=== PATIENT | male | born 1995 | race Caucasian/White ===

== ENCOUNTER 2017-04-08 14:11 | Emergency (ER) | payer BC ==
[~2017-04-08] VITALS: Ht 5787.1 cm; Wt 125.0 kg
[~2017-04-08 14:11] MED LIST: AMAN100C18 PO; ARIP10TA15 PO; ARIP20TA10; CLON0.1T20; CLON0.3T PO; LITH600C; LITH600C PO
[2017-04-08 15:01] LABS: CLARITY,URINE CLOUDY (Clear); COLOR,URINE YELLOW (Yellow); GLUCOSE, URINE NEGATIVE (Neg); KETONES,URINE NEGATIVE (Neg); LEUKOCYTE ESTERASE ,URINE TRACE (Neg); NITRITES, URINE NEGATIVE (Neg); OCCULT BLOOD,URINE NEGATIVE (Neg); PROTEIN,URINE 30 mg/dl (Neg)
[2017-04-08 15:07] LABS: BASOPHILS % (AUTO) 0.3 % (0-1); EOSINOPHILS # (AUTO) 0.2 X10'3 (0-0.9); EOSINOPHILS % (AUTO) 2.2 % (0-6); HEMATOCRIT 49.1 % (42.0-52.0); HEMOGLOBIN 17.3 g/dl (14.0-17.9); LYMPHOCYTES # (AUTO) 1.7 X10'3 (1.1-4.8); LYMPHOCYTES % (AUTO) 20.3 % (21-51); MEAN CORPUSCULAR HEMOGLOBIN 31.3 PG (27.0-31.0); MEAN CORPUSCULAR HGB CONC 35.2 % (33.0-36.5); MEAN CORPUSCULAR VOLUME 88.9 FL (78-98); MEAN PLATELET VOLUME 7.8 FL (7.4-10.4); MONOCYTES # (AUTO) 0.5 X10'3 (0-0.9); MONOCYTES % (AUTO) 5.5 % (2-12); NEUTROPHILS % (AUTO) 71.7 % (42-75); PLATELET COUNT 278 X10'3 (140-440); RED BLOOD COUNT 5.52 X10'6 (4.70-6.10); RED CELL DISTRIBUTION WIDTH 12.6 % (11.5-14.5); WHITE BLOOD COUNT 8.4 X10'3 (4.5-11.0)
[2017-04-08 15:09] LABS: UA COLLECTION TYPE CLN CATCH MIDSTREAM
[2017-04-08 15:10] LABS: MUCUS STRANDS MANY /LPF (Neg); SQUAMOUS EPITHELIAL CELL,UR MODERATE /LPF (FEW); URINE AMPHETAMINE SCREEN POSITIVE (Neg); URINE BARBITUATE SCREEN NEGATIVE (Neg); URINE BENZODIAZEPINES SCREEN POSITIVE (Neg); URINE CANNABINOID SCREEN NEGATIVE (Neg); URINE COCAINE SCREEN NEGATIVE (Neg); URINE METHADONE SCREEN NEGATIVE (Neg); URINE OPIATE SCREEN NEGATIVE (Neg); URINE PHENCYCLIDINE SCREEN NEGATIVE (Neg)
[2017-04-08 15:11] LABS: TRANSITIONAL EPI CELLS,URINE FEW /HPF
[2017-04-08 15:12] LABS: BACTERIA,URINE 1+ /HPF (Neg); RBC,URINE 0-2 /HPF (0-2); WBC,URINE 20-30 /HPF (0-4)
[2017-04-08] MEDS ORDERED: azithromycin 250mg tablet PO ONE (15:20)
[2017-04-08] MEDS ORDERED: CefTRIAXone 250MG IM Kit w/LIDOcaine IM ONE (15:20)
[2017-04-08] MEDS ORDERED: LITH600C PO ×2 (15:21→19:51)
[2017-04-08] MEDS ORDERED: ALPR-624 PO (15:21)
[2017-04-08] MEDS ORDERED: AMPH30CA10 PO (15:21)
[2017-04-08] MEDS ORDERED: QUET-1 PO (15:21)
[2017-04-08] MEDS ORDERED: LIT300C PO (15:21)
[2017-04-08 15:31] LABS: ALANINE AMINOTRANSFERASE 85 U/L (12-78); ALBUMIN 4.3 G/DL (3.4-5.0); ALBUMIN/GLOBULIN RATIO 1.1 (1.1-1.5); ALKALINE PHOSPHATASE 81 IU/L (20-180); ANION GAP 9 (8-16); ASPARTATE AMINO TRANSFERASE 38 U/L (10-37); BILIRUBIN,TOTAL 1.3 MG/DL (0.1-1.0); BLOOD UREA NITROGEN 14 MG/DL (7-18); BUN/CREATININE RATIO 12.7 (5.4-32.0); CALCIUM 9.4 MG/DL (8.5-10.1); CHLORIDE 104 MMOL/L (99-107); ETHANOL < 0.010 GM/DL (0.0-0.010); GLUCOSE 91 MG/DL (70-104); POTASSIUM 3.7 MMOL/L (3.5-5.1); SODIUM 140 MMOL/L (135-145); TOTAL CARBON DIOXIDE 27.4 MMOL/L (24-32); TOTAL PROTEIN 8.1 G/DL (6.4-8.2); eGFR 86 ML/MIN
[2017-04-09] MEDS ORDERED: ALPRAZolam 0.5mg tablet PO PRN (06:55)
[2017-04-09] MEDS ORDERED: quetiapine 100mg tablet PO PRN (06:55)
[2017-04-09] MEDS ORDERED: lithium carbonate 300mg SR tablet (LithoBID) PO SCH ×2 (08:00→21:00)
[2017-04-10 06:59] VITALS: BP 117/53
== END 2017-04-10 07:01 ==
LOC: ER 14:11
DX: R45.851 Suicidal ideations (principal); F15.959 Other stimulant use, unspecified with stimulant-induced psychotic disorder, unspecified; N39.0 Urinary tract infection, site not specified; Z79.899 Other long term (current) drug therapy
CPT/HCPCS: 36415; 80053; 80178; 80305; 80320; 81001; 84443; 85025; 87491; 87591; 96372; 99285; J0696

== ENCOUNTER 2017-05-12 11:50 | Day surgery (SDC) | payer BC, MEDICAID ==
[2017-05-07 16:13] LABS: BASOPHILS % (AUTO) 0.3 % (0-1); EOSINOPHILS # (AUTO) 0.1 X10'3 (0-0.9); EOSINOPHILS % (AUTO) 1.8 % (0-6); LYMPHOCYTES # (AUTO) 2.2 X10'3 (1.1-4.8); LYMPHOCYTES % (AUTO) 31.4 % (21-51); MEAN CORPUSCULAR HEMOGLOBIN 31.2 PG (27.0-31.0); MEAN CORPUSCULAR HGB CONC 34.8 % (33.0-36.5); MEAN CORPUSCULAR VOLUME 89.6 FL (78-98); MEAN PLATELET VOLUME 8.1 FL (7.4-10.4); MONOCYTES # (AUTO) 0.4 X10'3 (0-0.9); MONOCYTES % (AUTO) 6.3 % (2-12); NEUTROPHILS # (AUTO) 4.3 X10'3 (1.8-7.7); NEUTROPHILS % (AUTO) 60.2 % (42-75); PRE OP HEMATOCRIT 48.3 % (42.0-52.0); PRE OP HEMOGLOBIN 16.8 g/dL (14.0-17.9); PRE OP PLATELET COUNT 273 X10'3 (140-440); RED BLOOD COUNT 5.39 X10'6 (4.70-6.10)
[2017-05-07 16:27] LABS: ALBUMIN 4.3 G/DL (3.4-5.0); ALBUMIN/GLOBULIN RATIO 1.1 (1.1-1.5); ALKALINE PHOSPHATASE 83 IU/L (20-180); BLOOD UREA NITROGEN 13 MG/DL (7-18); BUN/CREATININE RATIO 12.1 (5.4-32.0); CALCIUM 9.2 MG/DL (8.5-10.1); CHLORIDE 105 MMOL/L (99-107); CREATININE 1.07 MG/DL (0.60-1.10); PRE OP ANION GAP 10 (8-16); PRE OP AST 44 U/L (10-37); PRE OP BILIRUB, TOTAL 0.8 MG/DL (0.0-1.0); PRE OP GLUCOSE 79 MG/DL (70-104); PRE OP POTASSIUM 3.8 MMOL/L (3.4-5.1); PRE OP SODIUM 143 MMOL/L (135-145); TOTAL PROTEIN 8.2 G/DL (6.4-8.2); eGFR 89 ML/MIN
[2017-05-07 16:31] LABS: PRE OP ALT 107 U/L (30-65)
[2017-05-07 17:52] LABS: CLARITY,URINE CLEAR (Clear); COLOR,URINE YELLOW (Yellow); GLUCOSE, URINE NEGATIVE (Neg); KETONES,URINE NEGATIVE (Neg); LEUKOCYTE ESTERASE ,URINE NEGATIVE (Neg); NITRITES, URINE NEGATIVE (Neg); OCCULT BLOOD,URINE NEGATIVE (Neg); PROTEIN,URINE NEGATIVE (Neg)
[2017-05-07 17:53] LABS: UA COLLECTION TYPE CLN CATCH MIDSTREAM
[~2017-05-12] VITALS: Ht 172.7 cm; Wt 122.9 kg
[~2017-05-12 11:50] MED LIST changes: +AMPH30CA10 PO; -ARIP10TA15 PO; -ARIP20TA10; -CLON0.1T20; -CLON0.3T PO; +LIT300C PO; -LITH600C; +QUET-1 PO; +ceFAZolin inj. 3,000 MG in normal saline 100ml IV soln 100 ML IV ONE; +famotidine 20mg tablet PO ONE; +ringers solution, lacted 1,000 ML IV SCH
[2017-05-12 12:00] VITALS: BP 130/74
[2017-05-12] MEDS ORDERED: LIDOcaine 1% (10mg/ml) 2ml vial ONE (12:13)
[2017-05-12] MEDS ORDERED: ALPRAZolam 0.25mg tablet PO ONE (13:30)
[2017-05-12] MEDS ORDERED: ringers solution, lacted 1,000 ML IV SCH (14:13)
[2017-05-12] MEDS ORDERED: hydrALAZINE 20mg/ml inj. IV PRN (14:15)
[2017-05-12] MEDS ORDERED: ondansetron/PF 4mg/2ml inj IV PRN (14:15)
[2017-05-12] MEDS ORDERED: fentaNYL/PF 50MCG/1 ML 2ML syringe IV PRN ×2 (14:15)
[2017-05-12] MEDS ORDERED: labetalol 5mg/ml 20ml inj. IV PRN (14:15)
[2017-05-12] MEDS ORDERED: morphine 4 MG/ML inj SYRINge IV PRN ×2 (14:15)
[2017-05-12] MEDS ORDERED: BUPIVAcaine/PF 2.5 mg/ml (0.25%) 30ml vial ONE (15:31)
[2017-05-12] MEDS ORDERED: povidone-iodine 10% topical ointment 28.4gm TP ONE (15:31)
[2017-05-12] MEDS ORDERED: ceFAZolin 1000mg inj ONE (15:31)
[2017-05-12] MEDS ORDERED: neostigmine methylsulfate 1 MG/ML 10ml vial ONE (15:38)
[2017-05-12] MEDS ORDERED: sevoflurane 250ml liquid IH ONE (15:38)
[2017-05-12] MEDS ORDERED: glycopyrrolate 0.2mg/ml inj ONE (15:38)
[2017-05-12] MEDS ORDERED: dexamethasone sod phosphate 4mg/ml inj. ONE (15:38)
[2017-05-12] MEDS ORDERED: propofol inj 20 ML IV ONE (15:38)
[2017-05-12] MEDS ORDERED: ondansetron/PF 4mg/2ml inj ONE (15:38)
[2017-05-12] MEDS ORDERED: rocuronium 10mg/ml inj IV ONE (15:38)
[2017-05-12] MEDS ORDERED: fentaNYL/PF 50MCG/1 ML 2ML syringe ONE (15:40)
[2017-05-12] MEDS ORDERED: MIDAZolam 5mg/5ml vial ONE (15:40)
[2017-05-12] MEDS ORDERED: methylene blue (5mg/ml) 50mg/10ml ampul IV ONE (16:15)
[2017-05-12 16:50] VITALS: BP 131/53
[2017-05-12 17:00] VITALS: BP 131/47
[2017-05-12 17:10] VITALS: BP 118/46
[2017-05-12 17:20] VITALS: BP 107/31
[2017-05-12 17:30] VITALS: BP 112/75
== END 2017-05-12 17:50 | disposition home or self-care (01) ==
LOC: PAS 11:50
PROVIDERS: ATTEND Surgery
DX: L05.91 Pilonidal cyst without abscess (principal); F43.10 Post-traumatic stress disorder, unspecified; E66.9 Obesity, unspecified; Z79.899 Other long term (current) drug therapy; F98.8 Other specified behavioral and emotional disorders with onset usually occurring in childhood and adolescence; Z68.41 Body mass index [BMI] 40.0-44.9, adult
CPT/HCPCS: 11771; 36415; 80053; 81003; 85025; A6266; A6449; J0690; J1100; J2250; J2405; J2704; J2710; J3010; J3490; J7030; J7120; A7000

== ENCOUNTER 2017-05-14 10:13 | Outpatient (CLI) | payer BC, MEDICAID ==
[~2017-05-14 10:13] MED LIST changes: -ceFAZolin inj. 3,000 MG in normal saline 100ml IV soln 100 ML IV ONE; -famotidine 20mg tablet PO ONE; -ringers solution, lacted 1,000 ML IV SCH
[2017-05-14] MEDS ORDERED: LIDOcaine 2% 5ml jelly ONE (11:27)
[2017-05-14] MEDS ORDERED: ALPR-624 PO (11:45)
== END 2017-05-14 12:04 | disposition home or self-care (01) ==
LOC: WOUND CARE 10:13
PROVIDERS: ATTEND Surgery
DX: T81.89XA Other complications of procedures, not elsewhere classified, initial encounter (principal); L98.491 Non-pressure chronic ulcer of skin of other sites limited to breakdown of skin; E66.9 Obesity, unspecified; F15.959 Other stimulant use, unspecified with stimulant-induced psychotic disorder, unspecified; Z79.899 Other long term (current) drug therapy; Y83.8 Other surgical procedures as the cause of abnormal reaction of the patient, or of later complication, without mention of misadventure at the time of the procedure
CPT/HCPCS: 99215; A6266

== ENCOUNTER 2017-05-18 10:03 | Outpatient (CLI) | payer BC, MEDICAID ==
[~2017-05-18 10:03] MED LIST changes: +ALPR-624 PO
== END 2017-05-18 11:39 | disposition home or self-care (01) ==
LOC: WOUND CARE 10:03
PROVIDERS: ATTEND Surgery
DX: T81.89XD Other complications of procedures, not elsewhere classified, subsequent encounter (principal); L98.491 Non-pressure chronic ulcer of skin of other sites limited to breakdown of skin; E66.9 Obesity, unspecified; F15.959 Other stimulant use, unspecified with stimulant-induced psychotic disorder, unspecified; Z79.899 Other long term (current) drug therapy; Y83.8 Other surgical procedures as the cause of abnormal reaction of the patient, or of later complication, without mention of misadventure at the time of the procedure
CPT/HCPCS: 99211; A6266

== ENCOUNTER 2017-05-21 10:42 | Outpatient (CLI) | payer BC, MEDICAID | END 2017-05-21 11:47 | disposition home or self-care (01) | LOC: WOUND CARE 10:42 | PROVIDERS: ATTEND Surgery | DX: T81.89XD Other complications of procedures, not elsewhere classified, subsequent encounter (principal); L98.491 Non-pressure chronic ulcer of skin of other sites limited to breakdown of skin; E66.9 Obesity, unspecified; F15.959 Other stimulant use, unspecified with stimulant-induced psychotic disorder, unspecified; Z79.899 Other long term (current) drug therapy; Y83.8 Other surgical procedures as the cause of abnormal reaction of the patient, or of later complication, without mention of misadventure at the time of the procedure | CPT/HCPCS: 99214; A6266 ==

== ENCOUNTER 2017-05-25 10:25 | Day surgery (SDC) | payer BC, MEDICAID ==
[2017-05-25] MEDS ORDERED: LIDOcaine 2% 5ml jelly ONE ×2 (10:54)
== END 2017-05-25 11:35 | disposition home or self-care (01) ==
LOC: WOUND CARE 10:25
PROVIDERS: ATTEND Surgery
DX: T81.89XD Other complications of procedures, not elsewhere classified, subsequent encounter (principal); L98.491 Non-pressure chronic ulcer of skin of other sites limited to breakdown of skin; E66.9 Obesity, unspecified; F15.959 Other stimulant use, unspecified with stimulant-induced psychotic disorder, unspecified; Z79.899 Other long term (current) drug therapy; Y83.8 Other surgical procedures as the cause of abnormal reaction of the patient, or of later complication, without mention of misadventure at the time of the procedure
CPT/HCPCS: 97597; A6266

== ENCOUNTER 2017-05-28 10:42 | Outpatient (CLI) | payer BC, MEDICAID ==
[2017-05-28] MEDS ORDERED: LIDOcaine 2% 5ml jelly ONE (12:00)
== END 2017-05-28 12:47 | disposition home or self-care (01) ==
LOC: WOUND CARE 10:42
PROVIDERS: ATTEND Surgery
DX: T81.89XD Other complications of procedures, not elsewhere classified, subsequent encounter (principal); L98.491 Non-pressure chronic ulcer of skin of other sites limited to breakdown of skin; E66.9 Obesity, unspecified; F15.959 Other stimulant use, unspecified with stimulant-induced psychotic disorder, unspecified; Z79.899 Other long term (current) drug therapy; Y83.8 Other surgical procedures as the cause of abnormal reaction of the patient, or of later complication, without mention of misadventure at the time of the procedure
CPT/HCPCS: 99215; A6213; A6266

== ENCOUNTER 2017-06-01 11:10 | Day surgery (SDC) | payer BC, MEDICAID ==
[2017-06-01] MEDS ORDERED: LIDOcaine 2% 5ml jelly ONE (11:24)
== END 2017-06-01 11:47 | disposition home or self-care (01) ==
LOC: WOUND CARE 11:10
PROVIDERS: ATTEND Surgery
DX: T81.89XD Other complications of procedures, not elsewhere classified, subsequent encounter (principal); L98.491 Non-pressure chronic ulcer of skin of other sites limited to breakdown of skin; E66.9 Obesity, unspecified; F15.959 Other stimulant use, unspecified with stimulant-induced psychotic disorder, unspecified; Z79.899 Other long term (current) drug therapy; Y83.8 Other surgical procedures as the cause of abnormal reaction of the patient, or of later complication, without mention of misadventure at the time of the procedure
CPT/HCPCS: 11042; A6266; A4456

== ENCOUNTER 2017-06-08 09:08 | Day surgery (SDC) | payer BC, MEDICAID ==
[2017-06-08] MEDS ORDERED: LIDOcaine 2% 5ml jelly ONE (11:04)
== END 2017-06-08 12:01 | disposition home or self-care (01) ==
LOC: WOUND CARE 09:08
PROVIDERS: ATTEND Surgery
DX: T81.89XD Other complications of procedures, not elsewhere classified, subsequent encounter (principal); L98.492 Non-pressure chronic ulcer of skin of other sites with fat layer exposed; E66.9 Obesity, unspecified; L05.01 Pilonidal cyst with abscess; F15.959 Other stimulant use, unspecified with stimulant-induced psychotic disorder, unspecified; Z79.899 Other long term (current) drug therapy; Y83.8 Other surgical procedures as the cause of abnormal reaction of the patient, or of later complication, without mention of misadventure at the time of the procedure
CPT/HCPCS: 11042; A6021

== ENCOUNTER 2017-06-11 09:41 | Day surgery (SDC) | payer BC, MEDICAID ==
[2017-06-11] MEDS ORDERED: LIDOcaine 2% 5ml jelly ONE (09:42)
== END 2017-06-11 10:41 | disposition home or self-care (01) ==
LOC: WOUND CARE 09:41
PROVIDERS: ATTEND Surgery
DX: T81.89XD Other complications of procedures, not elsewhere classified, subsequent encounter (principal); L98.492 Non-pressure chronic ulcer of skin of other sites with fat layer exposed; E66.9 Obesity, unspecified; L05.01 Pilonidal cyst with abscess; F15.959 Other stimulant use, unspecified with stimulant-induced psychotic disorder, unspecified; Z79.899 Other long term (current) drug therapy; Y83.8 Other surgical procedures as the cause of abnormal reaction of the patient, or of later complication, without mention of misadventure at the time of the procedure
CPT/HCPCS: 97597; A6266

== ENCOUNTER 2017-06-15 09:25 | Day surgery (SDC) | payer BC, MEDICAID ==
[2017-06-15] MEDS ORDERED: LIDOcaine 2% 5ml jelly ONE (09:58)
== END 2017-06-15 10:21 | disposition home or self-care (01) ==
LOC: WOUND CARE 09:25
PROVIDERS: ATTEND Surgery
DX: T81.89XD Other complications of procedures, not elsewhere classified, subsequent encounter (principal); L98.492 Non-pressure chronic ulcer of skin of other sites with fat layer exposed; E66.9 Obesity, unspecified; L05.01 Pilonidal cyst with abscess; F15.959 Other stimulant use, unspecified with stimulant-induced psychotic disorder, unspecified; Z79.899 Other long term (current) drug therapy; Y83.8 Other surgical procedures as the cause of abnormal reaction of the patient, or of later complication, without mention of misadventure at the time of the procedure
CPT/HCPCS: 11042; A6021

== ENCOUNTER 2017-06-18 08:27 | Day surgery (SDC) | payer BC, MEDICAID ==
[2017-06-18] MEDS ORDERED: LIDOcaine 2% 5ml jelly ONE (09:38)
== END 2017-06-18 09:58 | disposition home or self-care (01) ==
LOC: WOUND CARE 08:27
PROVIDERS: ATTEND Surgery
DX: T81.89XD Other complications of procedures, not elsewhere classified, subsequent encounter (principal); L98.492 Non-pressure chronic ulcer of skin of other sites with fat layer exposed; E66.9 Obesity, unspecified; L05.01 Pilonidal cyst with abscess; F15.959 Other stimulant use, unspecified with stimulant-induced psychotic disorder, unspecified; Z79.899 Other long term (current) drug therapy; Y83.8 Other surgical procedures as the cause of abnormal reaction of the patient, or of later complication, without mention of misadventure at the time of the procedure
CPT/HCPCS: 11042; A6021

== ENCOUNTER 2017-06-25 08:20 | Day surgery (SDC) | payer BC, MEDICAID ==
[2017-06-25] MEDS ORDERED: LIDOcaine 2% 5ml jelly ONE (09:39)
== END 2017-06-25 10:08 | disposition home or self-care (01) ==
LOC: WOUND CARE 08:20
PROVIDERS: ATTEND Surgery
DX: T81.89XD Other complications of procedures, not elsewhere classified, subsequent encounter (principal); L98.492 Non-pressure chronic ulcer of skin of other sites with fat layer exposed; L05.01 Pilonidal cyst with abscess; E66.9 Obesity, unspecified; F15.959 Other stimulant use, unspecified with stimulant-induced psychotic disorder, unspecified; Z79.899 Other long term (current) drug therapy; Z68.41 Body mass index [BMI] 40.0-44.9, adult; Y83.8 Other surgical procedures as the cause of abnormal reaction of the patient, or of later complication, without mention of misadventure at the time of the procedure
CPT/HCPCS: 17250; A6021

== ENCOUNTER 2017-07-02 09:00 | Day surgery (SDC) | payer BC, MEDICAID ==
[2017-07-02] MEDS ORDERED: LIDOcaine 2% 5ml jelly ONE (09:40)
== END 2017-07-02 10:00 | disposition home or self-care (01) ==
LOC: WOUND CARE 09:00
PROVIDERS: ATTEND Surgery
DX: T81.89XD Other complications of procedures, not elsewhere classified, subsequent encounter (principal); L98.492 Non-pressure chronic ulcer of skin of other sites with fat layer exposed; E66.9 Obesity, unspecified; L05.01 Pilonidal cyst with abscess; F15.959 Other stimulant use, unspecified with stimulant-induced psychotic disorder, unspecified; Z79.899 Other long term (current) drug therapy; Y83.8 Other surgical procedures as the cause of abnormal reaction of the patient, or of later complication, without mention of misadventure at the time of the procedure
CPT/HCPCS: 17250; A6021

== ENCOUNTER 2017-07-09 10:20 | Day surgery (SDC) | payer BC, MEDICAID ==
[2017-07-09] MEDS ORDERED: LIDOcaine 2% 5ml jelly ONE (10:54)
== END 2017-07-09 11:25 | disposition home or self-care (01) ==
LOC: WOUND CARE 10:20
PROVIDERS: ATTEND Surgery
DX: T81.89XD Other complications of procedures, not elsewhere classified, subsequent encounter (principal); L98.492 Non-pressure chronic ulcer of skin of other sites with fat layer exposed; E66.9 Obesity, unspecified; L05.01 Pilonidal cyst with abscess; F15.959 Other stimulant use, unspecified with stimulant-induced psychotic disorder, unspecified; Z79.899 Other long term (current) drug therapy; Y83.8 Other surgical procedures as the cause of abnormal reaction of the patient, or of later complication, without mention of misadventure at the time of the procedure
CPT/HCPCS: 17250; A6021

== ENCOUNTER 2017-07-20 08:47 | Day surgery (SDC) | payer BC, MEDICAID ==
[2017-07-20] MEDS ORDERED: LIDOcaine 2% 5ml jelly ONE (09:38)
== END 2017-07-20 09:54 | disposition home or self-care (01) ==
LOC: WOUND CARE 08:47
PROVIDERS: ATTEND Surgery
DX: T81.89XD Other complications of procedures, not elsewhere classified, subsequent encounter (principal); L98.492 Non-pressure chronic ulcer of skin of other sites with fat layer exposed; E66.9 Obesity, unspecified; L05.01 Pilonidal cyst with abscess; F15.959 Other stimulant use, unspecified with stimulant-induced psychotic disorder, unspecified; Z79.899 Other long term (current) drug therapy; Y83.8 Other surgical procedures as the cause of abnormal reaction of the patient, or of later complication, without mention of misadventure at the time of the procedure
CPT/HCPCS: 17250; A6021

== ENCOUNTER 2017-07-27 08:25 | Day surgery (SDC) | payer BC, MEDICAID ==
[2017-07-27] MEDS ORDERED: LIDOcaine 2% 5ml jelly ONE (09:40)
== END 2017-07-27 10:13 | disposition home or self-care (01) ==
LOC: WOUND CARE 08:25
PROVIDERS: ATTEND Surgery
DX: T81.89XD Other complications of procedures, not elsewhere classified, subsequent encounter (principal); L98.492 Non-pressure chronic ulcer of skin of other sites with fat layer exposed; E66.9 Obesity, unspecified; L05.01 Pilonidal cyst with abscess; F15.959 Other stimulant use, unspecified with stimulant-induced psychotic disorder, unspecified; Z79.899 Other long term (current) drug therapy; Z68.41 Body mass index [BMI] 40.0-44.9, adult; Y83.8 Other surgical procedures as the cause of abnormal reaction of the patient, or of later complication, without mention of misadventure at the time of the procedure
CPT/HCPCS: 17250; A6021

== ENCOUNTER 2017-08-10 08:40 | Day surgery (SDC) | payer BC, MEDICAID ==
[2017-08-10] MEDS ORDERED: LIDOcaine 2% 5ml jelly ONE (09:31)
== END 2017-08-10 10:10 | disposition home or self-care (01) ==
LOC: WOUND CARE 08:40
PROVIDERS: ATTEND Surgery
DX: T81.89XD Other complications of procedures, not elsewhere classified, subsequent encounter (principal); L98.492 Non-pressure chronic ulcer of skin of other sites with fat layer exposed; E66.9 Obesity, unspecified; L05.01 Pilonidal cyst with abscess; F15.959 Other stimulant use, unspecified with stimulant-induced psychotic disorder, unspecified; Z79.899 Other long term (current) drug therapy; Z68.41 Body mass index [BMI] 40.0-44.9, adult; Y83.8 Other surgical procedures as the cause of abnormal reaction of the patient, or of later complication, without mention of misadventure at the time of the procedure
CPT/HCPCS: 17250; A6021

== ENCOUNTER 2017-08-24 08:20 | Day surgery (SDC) | payer BC, MEDICAID ==
[2017-08-24] MEDS ORDERED: LIDOcaine 2% 5ml jelly ONE (09:49)
== END 2017-08-24 10:20 | disposition home or self-care (01) ==
LOC: WOUND CARE 08:20
PROVIDERS: ATTEND Surgery
DX: T81.89XD Other complications of procedures, not elsewhere classified, subsequent encounter (principal); L98.492 Non-pressure chronic ulcer of skin of other sites with fat layer exposed; E66.9 Obesity, unspecified; L05.01 Pilonidal cyst with abscess; F15.959 Other stimulant use, unspecified with stimulant-induced psychotic disorder, unspecified; Z79.899 Other long term (current) drug therapy; Z68.41 Body mass index [BMI] 40.0-44.9, adult; Y83.8 Other surgical procedures as the cause of abnormal reaction of the patient, or of later complication, without mention of misadventure at the time of the procedure
CPT/HCPCS: 17250; A6021

== ENCOUNTER 2017-09-07 08:20 | Day surgery (SDC) | payer BC, MEDICAID ==
[2017-09-07] MEDS ORDERED: LIDOcaine 2% 5ml jelly ONE (09:48)
== END 2017-09-07 10:32 | disposition home or self-care (01) ==
LOC: WOUND CARE 08:20
PROVIDERS: ATTEND Surgery
DX: T81.89XD Other complications of procedures, not elsewhere classified, subsequent encounter (principal); L98.492 Non-pressure chronic ulcer of skin of other sites with fat layer exposed; E66.9 Obesity, unspecified; L05.01 Pilonidal cyst with abscess; F15.959 Other stimulant use, unspecified with stimulant-induced psychotic disorder, unspecified; Z79.899 Other long term (current) drug therapy; Z68.41 Body mass index [BMI] 40.0-44.9, adult; Y83.8 Other surgical procedures as the cause of abnormal reaction of the patient, or of later complication, without mention of misadventure at the time of the procedure
CPT/HCPCS: 17250; A6021

== ENCOUNTER 2017-09-21 08:40 | Day surgery (SDC) | payer BC, MEDICAID ==
[2017-09-21] MEDS ORDERED: LIDOcaine 2% 5ml jelly ONE (09:28)
[2017-09-21] MEDS ORDERED: PROP20TA6 PO (14:57)
== END 2017-09-21 10:47 | disposition home or self-care (01) ==
LOC: WOUND CARE 08:40
PROVIDERS: ATTEND Surgery
DX: T81.89XD Other complications of procedures, not elsewhere classified, subsequent encounter (principal); L98.492 Non-pressure chronic ulcer of skin of other sites with fat layer exposed; E66.9 Obesity, unspecified; L05.01 Pilonidal cyst with abscess; F15.959 Other stimulant use, unspecified with stimulant-induced psychotic disorder, unspecified; Z79.899 Other long term (current) drug therapy; Z68.41 Body mass index [BMI] 40.0-44.9, adult; Y83.8 Other surgical procedures as the cause of abnormal reaction of the patient, or of later complication, without mention of misadventure at the time of the procedure
CPT/HCPCS: 17250; A6021

== ENCOUNTER 2017-10-05 08:20 | Day surgery (SDC) | payer BC, MEDICAID ==
[~2017-10-05 08:20] MED LIST changes: +PROP20TA6 PO
[2017-10-05] MEDS ORDERED: LIDOcaine/PRILOcaine 5gm cream TP ONE (09:37)
== END 2017-10-05 10:29 | disposition home or self-care (01) ==
LOC: WOUND CARE 08:20
PROVIDERS: ATTEND Surgery
DX: T81.89XD Other complications of procedures, not elsewhere classified, subsequent encounter (principal); L98.492 Non-pressure chronic ulcer of skin of other sites with fat layer exposed
CPT/HCPCS: 17250; A6021

== ENCOUNTER 2017-10-19 08:15 | Day surgery (SDC) | payer BC, MEDICAID | END 2017-10-19 10:05 | disposition home or self-care (01) | LOC: WOUND CARE 08:15 | PROVIDERS: ATTEND Surgery | DX: T81.89XD Other complications of procedures, not elsewhere classified, subsequent encounter (principal); L98.492 Non-pressure chronic ulcer of skin of other sites with fat layer exposed; E66.9 Obesity, unspecified; L05.01 Pilonidal cyst with abscess; F15.959 Other stimulant use, unspecified with stimulant-induced psychotic disorder, unspecified; Z79.899 Other long term (current) drug therapy; Z68.41 Body mass index [BMI] 40.0-44.9, adult; Y83.8 Other surgical procedures as the cause of abnormal reaction of the patient, or of later complication, without mention of misadventure at the time of the procedure | CPT/HCPCS: 17250; A6021 ==

== ENCOUNTER 2017-11-02 08:25 | Day surgery (SDC) | payer BC, MEDICAID ==
[2017-11-02] MEDS ORDERED: LIDOcaine/PRILOcaine 5gm cream TP ONE (09:46)
== END 2017-11-02 10:46 | disposition home or self-care (01) ==
LOC: WOUND CARE 08:25
PROVIDERS: ATTEND Surgery
DX: T81.89XD Other complications of procedures, not elsewhere classified, subsequent encounter (principal); L98.492 Non-pressure chronic ulcer of skin of other sites with fat layer exposed; E66.9 Obesity, unspecified; L05.01 Pilonidal cyst with abscess; F15.959 Other stimulant use, unspecified with stimulant-induced psychotic disorder, unspecified; Z79.899 Other long term (current) drug therapy; Y83.8 Other surgical procedures as the cause of abnormal reaction of the patient, or of later complication, without mention of misadventure at the time of the procedure
CPT/HCPCS: 17250; A6021

== ENCOUNTER 2017-11-09 08:35 | Day surgery (SDC) | payer BC, MEDICAID ==
[2017-11-09] MEDS ORDERED: LIDOcaine/PRILOcaine 5gm cream TP ONE (09:57)
== END 2017-11-09 10:20 | disposition home or self-care (01) ==
LOC: WOUND CARE 08:35
PROVIDERS: ATTEND Surgery
DX: T81.89XD Other complications of procedures, not elsewhere classified, subsequent encounter (principal); L98.492 Non-pressure chronic ulcer of skin of other sites with fat layer exposed; E66.9 Obesity, unspecified; L05.01 Pilonidal cyst with abscess; F15.959 Other stimulant use, unspecified with stimulant-induced psychotic disorder, unspecified; Z79.899 Other long term (current) drug therapy; Y83.8 Other surgical procedures as the cause of abnormal reaction of the patient, or of later complication, without mention of misadventure at the time of the procedure
CPT/HCPCS: 17250; A6021

== ENCOUNTER 2017-11-16 08:25 | Day surgery (SDC) | payer BC, MEDICAID ==
[2017-11-16] MEDS ORDERED: LIDOcaine/PRILOcaine 5gm cream TP ONE (09:29)
== END 2017-11-16 10:40 | disposition home or self-care (01) ==
LOC: WOUND CARE 08:25
PROVIDERS: ATTEND Surgery
DX: T81.89XD Other complications of procedures, not elsewhere classified, subsequent encounter (principal); L98.492 Non-pressure chronic ulcer of skin of other sites with fat layer exposed; E66.9 Obesity, unspecified; L05.01 Pilonidal cyst with abscess; F15.959 Other stimulant use, unspecified with stimulant-induced psychotic disorder, unspecified; Z79.899 Other long term (current) drug therapy; Y83.8 Other surgical procedures as the cause of abnormal reaction of the patient, or of later complication, without mention of misadventure at the time of the procedure
CPT/HCPCS: 17250; A6021

== ENCOUNTER 2017-11-23 07:05 | Day surgery (SDC) | payer BC, MEDICAID ==
[2017-11-23] MEDS ORDERED: LIDOcaine/PRILOcaine 5gm cream TP ONE (09:49)
== END 2017-11-23 10:05 | disposition home or self-care (01) ==
LOC: WOUND CARE 07:05
PROVIDERS: ATTEND Surgery
DX: T81.89XD Other complications of procedures, not elsewhere classified, subsequent encounter (principal); L98.492 Non-pressure chronic ulcer of skin of other sites with fat layer exposed; E66.9 Obesity, unspecified; L05.01 Pilonidal cyst with abscess; F15.959 Other stimulant use, unspecified with stimulant-induced psychotic disorder, unspecified; Z79.899 Other long term (current) drug therapy; Y83.8 Other surgical procedures as the cause of abnormal reaction of the patient, or of later complication, without mention of misadventure at the time of the procedure
CPT/HCPCS: 17250; A6021

== ENCOUNTER 2017-11-30 08:03 | Day surgery (SDC) | payer BC, MEDICAID | END 2017-11-30 10:12 | disposition home or self-care (01) | LOC: WOUND CARE 08:03 | PROVIDERS: ATTEND Surgery | DX: T81.89XD Other complications of procedures, not elsewhere classified, subsequent encounter (principal); L98.492 Non-pressure chronic ulcer of skin of other sites with fat layer exposed; E66.9 Obesity, unspecified; L05.01 Pilonidal cyst with abscess; F15.959 Other stimulant use, unspecified with stimulant-induced psychotic disorder, unspecified; Z79.899 Other long term (current) drug therapy; Y83.8 Other surgical procedures as the cause of abnormal reaction of the patient, or of later complication, without mention of misadventure at the time of the procedure | CPT/HCPCS: 17250; A6021 ==

== ENCOUNTER 2017-12-14 08:07 | Day surgery (SDC) | payer BC, MEDICAID | END 2017-12-14 10:30 | disposition home or self-care (01) | LOC: WOUND CARE 08:07 | PROVIDERS: ATTEND Surgery | DX: T81.89XD Other complications of procedures, not elsewhere classified, subsequent encounter (principal); L98.492 Non-pressure chronic ulcer of skin of other sites with fat layer exposed; E66.9 Obesity, unspecified; L05.01 Pilonidal cyst with abscess; F15.959 Other stimulant use, unspecified with stimulant-induced psychotic disorder, unspecified; Z79.899 Other long term (current) drug therapy; Y83.8 Other surgical procedures as the cause of abnormal reaction of the patient, or of later complication, without mention of misadventure at the time of the procedure | CPT/HCPCS: 17250; A6021 ==

== ENCOUNTER 2017-12-28 08:05 | Day surgery (SDC) | payer BC, MEDICAID ==
[2017-12-28] MEDS ORDERED: LIDOcaine/PRILOcaine 5gm cream TP ONE (09:46)
== END 2017-12-28 09:53 | disposition home or self-care (01) ==
LOC: WOUND CARE 08:05
PROVIDERS: ATTEND Surgery
DX: T81.89XD Other complications of procedures, not elsewhere classified, subsequent encounter (principal); L98.492 Non-pressure chronic ulcer of skin of other sites with fat layer exposed; E66.9 Obesity, unspecified; L05.01 Pilonidal cyst with abscess; F15.959 Other stimulant use, unspecified with stimulant-induced psychotic disorder, unspecified; Z79.899 Other long term (current) drug therapy; Y83.8 Other surgical procedures as the cause of abnormal reaction of the patient, or of later complication, without mention of misadventure at the time of the procedure
CPT/HCPCS: 17250; 97597; A6021

== ENCOUNTER 2018-01-11 08:05 | Day surgery (SDC) | payer BC, MEDICAID | END 2018-01-11 10:09 | disposition home or self-care (01) | LOC: WOUND CARE 08:05 | PROVIDERS: ATTEND Surgery | DX: T81.89XD Other complications of procedures, not elsewhere classified, subsequent encounter (principal); L98.492 Non-pressure chronic ulcer of skin of other sites with fat layer exposed; E66.9 Obesity, unspecified; L05.01 Pilonidal cyst with abscess; F15.959 Other stimulant use, unspecified with stimulant-induced psychotic disorder, unspecified; Z79.899 Other long term (current) drug therapy; Y83.8 Other surgical procedures as the cause of abnormal reaction of the patient, or of later complication, without mention of misadventure at the time of the procedure | CPT/HCPCS: 17250; 97597; A6021 ==

== ENCOUNTER 2018-04-05 08:15 | Day surgery (SDC) | payer BC, MEDICAID ==
[2018-04-05] MEDS ORDERED: LIDOcaine/PRILOcaine 5gm cream TP ONE (09:46)
--- NOTE | 2018-04-05 16:08 | NUR ---
Patient ambulated independently from [facility] and was admitted to outpatient wound care for physician visit with Sai Arriola MD. Dressing removed, wound cleansed and lidocaine applied per order. Patient assessed for changes in conditions, medications and medical history. Dr. Arriola at bedside accompanied by RN. Wound assessed, time out performed by MD/RN. Wound debrided as detailed in the physician progress/procedure note. Plan of care discussed with patient. Dressings placed per MD orders. Patient instructed on the signs and symptoms of infection and to call the Wound Center if any occur or to go to the ED if we are closed: Increased pain in wound Increase in drainage from the wound Redness in the skin surrounding the wound Bleeding from the wound Temperature of 101 or greater Patient instructed that the weight of their body puts a large amount of pressure on their wounds. This pressure keeps the new tissue from growing and inhibits new blood vessels from forming. Explained that, if they continue to bear weight on a body part that has a wound, the time it takes to heal the wound increases, the wound may get worse or the wound may not heal at all. Addendum: 04/05/18 at 1609 by Sandra Solomon RN Amended: Links added.
== END 2018-04-05 10:40 | disposition home or self-care (01) ==
LOC: WOUND CARE 08:15
PROVIDERS: ATTEND Surgery
DX: T81.89XD Other complications of procedures, not elsewhere classified, subsequent encounter (principal); L98.492 Non-pressure chronic ulcer of skin of other sites with fat layer exposed; E66.9 Obesity, unspecified; L05.01 Pilonidal cyst with abscess; F15.959 Other stimulant use, unspecified with stimulant-induced psychotic disorder, unspecified; Z79.899 Other long term (current) drug therapy; Y83.8 Other surgical procedures as the cause of abnormal reaction of the patient, or of later complication, without mention of misadventure at the time of the procedure
CPT/HCPCS: 17250; A6021

== ENCOUNTER 2018-04-12 08:26 | Day surgery (SDC) | payer BC, MEDICAID ==
[2018-04-12] MEDS ORDERED: LIDOcaine/PRILOcaine 5gm cream TP ONE (09:41)
--- NOTE | 2018-04-12 10:15 | NUR ---
Patient ambulated independently from [facility] accompanied by his dad and was admitted to outpatient wound care for physician visit with Sai Arriola MD. Dressing removed, wound cleansed and Emla cream applied per order. Patient assessed for changes in conditions, medications and medical history. 1010 - Dr. Arriola at bedside accompanied by RN. Wound assessed, time out performed by MD/RN. Wound debrided as detailed in the physician progress/procedure note. Plan of care discussed with patient. Dressings placed per MD orders. Patient instructed on the signs and symptoms of infection and to call the Wound Center if any occur or to go to the ED if we are closed: Increased pain in wound Increase in drainage from the wound Redness in the skin surrounding the wound Bleeding from the wound Temperature of 101 or greater Patient instructed that the weight of their body puts a large amount of pressure on their wounds. This pressure keeps the new tissue from growing and inhibits new blood vessels from forming. Explained that, if they continue to bear weight on a body part that has a wound, the time it takes to heal the wound increases, the wound may get worse or the wound may not heal at all. Patient and his dad verbalized understanding of all discharge instructions and plan of care and ambulated independently out to [facility] accompanied by his dad and is in stable condition with no sign or symptom of distress at time of discharge.
== END 2018-04-12 10:25 | disposition home or self-care (01) ==
LOC: WOUND CARE 08:26
PROVIDERS: ATTEND Surgery
DX: T81.89XD Other complications of procedures, not elsewhere classified, subsequent encounter (principal); L98.492 Non-pressure chronic ulcer of skin of other sites with fat layer exposed; E66.9 Obesity, unspecified; L05.01 Pilonidal cyst with abscess; F15.959 Other stimulant use, unspecified with stimulant-induced psychotic disorder, unspecified; Z79.899 Other long term (current) drug therapy; Y83.8 Other surgical procedures as the cause of abnormal reaction of the patient, or of later complication, without mention of misadventure at the time of the procedure
CPT/HCPCS: 17250; 97597; A6021

== ENCOUNTER 2018-04-19 08:30 | Day surgery (SDC) | payer BC, MEDICAID ==
[2018-04-19] MEDS ORDERED: LIDOcaine/PRILOcaine 5gm cream TP ONE (09:49)
--- NOTE | 2018-04-19 14:26 | NUR ---
Patient ambulated independently from [facility] and was admitted to outpatient wound care for physician visit with Sai Arriola MD. Dressing removed, wound cleansed and lidocaine applied per order. Patient assessed for changes in conditions, medications and medical history. Patient mentioned new living situation, now at the [facility]. See form [id number] (03/27) [address] Arriola at bedside accompanied by RN. Wound assessed, time out performed by MD/RN. Wound debrided as detailed in the physician progress/procedure note. Plan of care discussed with patient. Dressings placed per MD orders. Patient instructed on the signs and symptoms of infection and to call the Wound Center if any occur or to go to the ED if we are closed: Increased pain in wound Increase in drainage from the wound Redness in the skin surrounding the wound Bleeding from the wound Temperature of 101 or greater Patient instructed that the weight of their body puts a large amount of pressure on their wounds. This pressure keeps the new tissue from growing and inhibits new blood vessels from forming. Explained that, if they continue to bear weight on a body part that has a wound, the time it takes to heal the wound increases, the wound may get worse or the wound may not heal at all. Patient verbalized understanding of all discharge instructions and plan of care and ambulated independently out to [facility] in stable condition with no sign or symptom of distress at time of discharge. Addendum: 04/19/18 at 1430 by Sandra Solomon RN Amended: Links added.
== END 2018-04-19 10:10 | disposition home or self-care (01) ==
LOC: WOUND CARE 08:30
PROVIDERS: ATTEND Surgery
DX: T81.89XD Other complications of procedures, not elsewhere classified, subsequent encounter (principal); L98.492 Non-pressure chronic ulcer of skin of other sites with fat layer exposed; E66.9 Obesity, unspecified; L05.01 Pilonidal cyst with abscess; F15.959 Other stimulant use, unspecified with stimulant-induced psychotic disorder, unspecified; Z79.899 Other long term (current) drug therapy; Y83.8 Other surgical procedures as the cause of abnormal reaction of the patient, or of later complication, without mention of misadventure at the time of the procedure
CPT/HCPCS: 97597; A6021

== ENCOUNTER 2018-05-03 08:29 | Day surgery (SDC) | payer BC, MEDICAID ==
[~2018-05-03 08:29] MED LIST changes: +ARIP400S3 IM; -LITH600C PO; +MIRT15TA PO
[2018-05-03] MEDS ORDERED: LIDOcaine/PRILOcaine 5gm cream TP ONE ×2 (09:56→09:58)
--- NOTE | 2018-05-03 10:25 | NUR ---
Patient ambulated independently from [facility] accompanied by his dad and was admitted to outpatient wound care for physician visit with Sai Arriola MD. Dressing removed, wound cleansed and Emla cream applied per order. Patient assessed for changes in conditions, medications and medical history. Dr. Arriola at bedside accompanied by RN. Wound assessed, time out performed by MD/RN. Wound debrided as detailed in the physician progress/procedure note. Plan of care discussed with patient. Dressings placed per MD orders. Patient instructed on the signs and symptoms of infection and to call the Wound Center if any occur or to go to the ED if we are closed: Increased pain in wound Increase in drainage from the wound Redness in the skin surrounding the wound Bleeding from the wound Temperature of 101 or greater Patient instructed that the weight of their body puts a large amount of pressure on their wounds. This pressure keeps the new tissue from growing and inhibits new blood vessels from forming. Explained that, if they continue to bear weight on a body part that has a wound, the time it takes to heal the wound increases, the wound may get worse or the wound may not heal at all. Patient verbalized understanding of all discharge instructions and plan of care and ambulated independently accompanied by his dad out to [facility] in stable condition with no sign or symptom of distress at time of discharge.
== END 2018-05-03 10:25 | disposition home or self-care (01) ==
LOC: WOUND CARE 08:29
PROVIDERS: ATTEND Surgery
DX: T81.89XD Other complications of procedures, not elsewhere classified, subsequent encounter (principal); L98.492 Non-pressure chronic ulcer of skin of other sites with fat layer exposed; E66.9 Obesity, unspecified; L05.01 Pilonidal cyst with abscess; F15.959 Other stimulant use, unspecified with stimulant-induced psychotic disorder, unspecified; Z79.899 Other long term (current) drug therapy; Y83.8 Other surgical procedures as the cause of abnormal reaction of the patient, or of later complication, without mention of misadventure at the time of the procedure
CPT/HCPCS: 97597; A6021

== ENCOUNTER 2018-05-17 08:16 | Day surgery (SDC) | payer BC, MEDICAID ==
[2018-05-17] MEDS ORDERED: LIDOcaine/PRILOcaine 5gm cream TP ONE (09:38)
--- NOTE | 2018-05-17 10:10 | NUR ---
Patient ambulated independently from [facility] and was admitted to outpatient wound care for physician visit with Sai Arriola MD. Dressing removed, wound cleansed and Emla cream applied per order. Patient assessed for changes in conditions, medications and medical history. 1000 - Dr. Arriola at bedside accompanied by RN. Wound assessed, time out performed by MD/RN. Wound debrided as detailed in the physician progress/procedure note. Plan of care discussed with patient. Dressings placed per MD orders. Patient is discharged from the wound clinic to follow up on an as needed basis. Patient instructed on the signs and symptoms of infection and to call the Wound Center if any occur or to go to the ED if we are closed: Increased pain in wound Increase in drainage from the wound Redness in the skin surrounding the wound Bleeding from the wound Temperature of 101 or greater Patient instructed that the weight of their body puts a large amount of pressure on their wounds. This pressure keeps the new tissue from growing and inhibits new blood vessels from forming. Explained that, if they continue to bear weight on a body part that has a wound, the time it takes to heal the wound increases, the wound may get worse or the wound may not heal at all. Patient verbalized understanding of all discharge instructions and plan of care and ambulated independently out to [facility] in stable condition with no sign or symptom of distress at time of discharge.
== END 2018-05-17 10:06 | disposition home or self-care (01) ==
LOC: WOUND CARE 08:16
PROVIDERS: ATTEND Surgery
DX: T81.89XD Other complications of procedures, not elsewhere classified, subsequent encounter (principal); L98.498 Non-pressure chronic ulcer of skin of other sites with other specified severity; E66.9 Obesity, unspecified; L05.01 Pilonidal cyst with abscess; F15.959 Other stimulant use, unspecified with stimulant-induced psychotic disorder, unspecified; Z79.899 Other long term (current) drug therapy; Y83.8 Other surgical procedures as the cause of abnormal reaction of the patient, or of later complication, without mention of misadventure at the time of the procedure
CPT/HCPCS: 97597; A6021

== ENCOUNTER 2019-07-30 15:44 | Emergency (ER) | payer BC, MEDICAID ==
[~2019-07-30] VITALS: Ht 175.3 cm; Wt 122.7 kg
[~2019-07-30 15:44] MED LIST changes: -AMPH30CA10 PO; +DEXT30CA6 PO
[2019-07-30 15:59] VITALS: BP 144/87
== END 2019-07-30 16:49 | disposition home or self-care (01) ==
LOC: ER 15:44
DX: Z00.00 Encounter for general adult medical examination without abnormal findings (principal); F41.9 Anxiety disorder, unspecified; F31.9 Bipolar disorder, unspecified; Z59.0 Homelessness; Z79.899 Other long term (current) drug therapy
CPT/HCPCS: 99281

== ENCOUNTER 2019-11-19 18:49 | Emergency (ER) | payer MEDICAID ==
[~2019-11-19] VITALS: Ht 170.2 cm; Wt 90.9 kg
[2019-11-19] MEDS ORDERED: normal saline 1000ML IV soln IVB ONE (19:05)
--- NOTE | 2019-11-19 19:48 | NUR ---
PT UNABLE TO URINATE
[2019-11-19 21:58] VITALS: BP 139/78
== END 2019-11-19 22:01 | disposition home or self-care (01) ==
LOC: ER 18:49
DX: T40.7X1A Poisoning by cannabis (derivatives), accidental (unintentional), initial encounter (principal); F41.9 Anxiety disorder, unspecified; F31.9 Bipolar disorder, unspecified; F12.90 Cannabis use, unspecified, uncomplicated; Z59.0 Homelessness; Z79.899 Other long term (current) drug therapy; Y92.89 Other specified places as the place of occurrence of the external cause
CPT/HCPCS: 96360; 96361; 99283; J7030

== ENCOUNTER 2019-12-14 11:06 | Emergency (ER) | payer MEDICAID ==
[~2019-12-14] VITALS: Ht 175.3 cm; Wt 120.5 kg
[2019-12-14 11:49] LABS: BASOPHILS % (AUTO) 0.3 % (0-1); EOSINOPHILS # (AUTO) 0.1 X10'3 (0-0.9); EOSINOPHILS % (AUTO) 1.6 % (0-6); HEMATOCRIT 45.3 % (42.0-52.0); HEMOGLOBIN 15.5 g/dl (14.0-17.9); LYMPHOCYTES # (AUTO) 1.9 X10'3 (1.1-4.8); LYMPHOCYTES % (AUTO) 27.4 % (21-51); MEAN CORPUSCULAR HEMOGLOBIN 31.5 PG (27.0-31.0); MEAN CORPUSCULAR HGB CONC 34.2 g/dL (33.0-36.5); MEAN CORPUSCULAR VOLUME 92.1 FL (78-98); MEAN PLATELET VOLUME 8.1 FL (7.4-10.4); MONOCYTES # (AUTO) 0.5 X10'3 (0-0.9); MONOCYTES % (AUTO) 6.7 % (2-12); NEUTROPHILS # (AUTO) 4.5 X10'3 (1.8-7.7); PLATELET COUNT 249 X10'3 (140-440); RED BLOOD COUNT 4.92 X10'6 (4.70-6.10); RED CELL DISTRIBUTION WIDTH 12.6 % (11.5-14.5); WHITE BLOOD COUNT 7.1 X10'3 (4.5-11.0)
[2019-12-14 12:08] LABS: ALANINE AMINOTRANSFERASE 49 U/L (12-78); ALBUMIN 4.1 G/DL (3.4-5.0); ALBUMIN/GLOBULIN RATIO 1.1 (1.1-1.5); ALKALINE PHOSPHATASE 76 IU/L (46-116); ANION GAP 7 (8-16); ASPARTATE AMINO TRANSFERASE 31 U/L (10-37); BILIRUBIN,TOTAL 0.5 MG/DL (0.1-1.0); BLOOD UREA NITROGEN 15 MG/DL (7-18); BUN/CREATININE RATIO 15.5 (5.4-32.0); CHLORIDE 103 MMOL/L (99-107); CREATININE 0.97 MG/DL (0.60-1.10); GLUCOSE 103 MG/DL (70-104); POTASSIUM 3.6 MMOL/L (3.5-5.1); SODIUM 140 MMOL/L (135-145); TOTAL CARBON DIOXIDE 29.6 MMOL/L (24-32); TOTAL PROTEIN 7.7 G/DL (6.4-8.2); eGFR > 90 ML/MIN
[2019-12-14 12:11] LABS: CLARITY,URINE SLIGHTLY CLOUDY (Clear); COLOR,URINE YELLOW (Yellow); GLUCOSE, URINE NEGATIVE (Neg); KETONES,URINE NEGATIVE (Neg); LEUKOCYTE ESTERASE ,URINE NEGATIVE (Neg); NITRITES, URINE NEGATIVE (Neg); OCCULT BLOOD,URINE NEGATIVE (Neg); PROTEIN,URINE NEGATIVE (Neg)
[2019-12-14 12:13] LABS: UA COLLECTION TYPE VOIDED
[2019-12-14 12:17] LABS: ETHANOL < 0.010 GM/DL (0.0-0.010)
[2019-12-14 12:20] LABS: URINE AMPHETAMINE SCREEN NEGATIVE (Neg); URINE BARBITUATE SCREEN NEGATIVE (Neg); URINE BENZODIAZEPINES SCREEN NEGATIVE (Neg); URINE CANNABINOID SCREEN POSITIVE (Neg); URINE COCAINE SCREEN NEGATIVE (Neg); URINE METHADONE SCREEN NEGATIVE (Neg); URINE OPIATE SCREEN NEGATIVE (Neg); URINE PHENCYCLIDINE SCREEN NEGATIVE (Neg)
[2019-12-14 12:25] LABS: BACTERIA,URINE FEW /HPF (Neg); MUCUS STRANDS FEW /LPF (Neg); SQUAMOUS EPITHELIAL CELL,UR MODERATE /LPF (FEW)
[2019-12-14 12:26] LABS: RBC,URINE 0-2 /HPF (0-2); WBC,URINE 0-4 /HPF (0-4)
[2019-12-14] MEDS ORDERED: LORA-269 PO (15:03)
[2019-12-14] MEDS ORDERED: ARIP15TA8 PO (15:06)
[2019-12-14] MEDS ORDERED: ARIP20TA4 PO (15:06)
[2019-12-14] MEDS ORDERED: DIPH50CA37 PO (15:07)
--- NOTE | 2019-12-14 15:15 | NUR ---
RN received pt. from main ER. Pt. is calm and cooperative awake and laying supine in bed. Pt. reports he is here for SI without a plan. Pt. reports he is hopeful for the future because he has a supportive girlfriend and many street friends. Pt. reports he is homeless and lives at [facility]. Pt. reports that his stressors have been increasingly but is unable to verbalize what it is.Pt. became distraught due to another patient needing emergency medication. Pt. started crying hysterically stating, "I've been in group homes before and this is bringing back flashbacks". Pt. reports that he goes into "PTSD rages" and throws things when triggered. RN talked pt. down and pt. cried more. Pt. states, "I just need to get back on my meds". Pt. denies current SI/HI, A/V H. Pt. reports previous suicide attempt at 20 years old when he tied a dog collar around his neck in an attempt to aphyxiate himeself. Admission and physical assessment done.
[2019-12-14] MEDS ORDERED: aripiprazole 400mg suspension ER syringe IM SCH (16:45)
[2019-12-14] MEDS ORDERED: quetiapine 100mg tablet PO PRN (16:45)
--- NOTE | 2019-12-14 18:28 | NUR ---
Packet faxed to [facility]
--- NOTE | 2019-12-14 18:56 | NUR ---
The patient is sittting up and having his dinner tray. He stated that his appetite has been good. He stated that he has been living at the [facility] for the past 8 months and stated "Its great there" He stated that he is in good standing there. He stated that his anxiety is currently low. When asked what his mood was he stated, "Great. I'm in a great mood. I'm happy" He denies suicidal thoughts for the past several hours. He is socializing with a male peer. He is waiting to be assessed by [facility].
[2019-12-14] MEDS ORDERED: LORazepam 0.5 MG tablet PO SCH (20:00)
[2019-12-14] MEDS ORDERED: propranolol 40mg tablet PO SCH (20:00)
--- NOTE | 2019-12-14 20:40 | NUR ---
[facility] at the bedside to interview patient
[2019-12-14] MEDS ORDERED: mirtazapine 15mg tablet PO SCH (21:00)
[2019-12-14] MEDS ORDERED: lithium carbonate 300mg SR tablet (LithoBID) PO SCH (21:00)
[2019-12-14 21:18] VITALS: BP 114/60
[2019-12-15] MEDS ORDERED: ARIPIPRAZOLE 10 MG TABLET PO SCH (08:00)
[2019-12-15] MEDS ORDERED: dextroamphetamine/amphetamine 5mg tablet PO SCH (08:00)
== END 2019-12-14 21:22 ==
LOC: ER 11:06
DX: R45.851 Suicidal ideations (principal); F41.9 Anxiety disorder, unspecified; F31.9 Bipolar disorder, unspecified; F12.90 Cannabis use, unspecified, uncomplicated; Z98.890 Other specified postprocedural states; Z59.0 Homelessness; Z88.8 Allergy status to other drugs, medicaments and biological substances; Z79.2 Long term (current) use of antibiotics; Z79.899 Other long term (current) drug therapy
CPT/HCPCS: 36415; 80053; 80305; 80320; 81001; 84443; 85025; 96372; 99285

== ENCOUNTER 2019-12-17 23:09 | Emergency (ER) | payer MEDICAID ==
[~2019-12-17] VITALS: Ht 165.1 cm; Wt 82.0 kg
[~2019-12-17 23:09] MED LIST changes: -ALPR-624 PO; -AMAN100C18 PO; +ARIP20TA4 PO; +DIPH50CA37 PO; +LORA-269 PO; +MIRT-116 PO; -MIRT15TA PO
[2019-12-17 23:52] VITALS: BP 162/104
--- NOTE | 2019-12-18 01:34 | NUR ---
TRIAGE NOTE WRITTEN ON WRONG PATIENT, PATIENT LEFT BEFORE TRIAGE.
== END 2019-12-18 01:34 | disposition left against medical advice (07) ==
LOC: ER 23:10
DX: M79.644 Pain in right finger(s) (principal); Z53.21 Procedure and treatment not carried out due to patient leaving prior to being seen by health care provider

== ENCOUNTER 2019-12-27 15:21 | Emergency (ER) | payer MEDICAID ==
[~2019-12-27] VITALS: Ht 172.7 cm; Wt 118.2 kg
[~2019-12-27 15:21] MED LIST changes: +ARIP15TA8 PO
[2019-12-27 16:19] VITALS: BP 126/70
[2019-12-27] MEDS ORDERED: IBUP-1984 PO (16:55)
[2019-12-27] MEDS ORDERED: ibuprofen tablet 400 MG TABLET PO ONE (16:55)
== END 2019-12-27 17:25 | disposition home or self-care (01) ==
LOC: ER 15:22
DX: M25.561 Pain in right knee (principal); F41.9 Anxiety disorder, unspecified; F31.9 Bipolar disorder, unspecified; F12.90 Cannabis use, unspecified, uncomplicated; Z59.0 Homelessness; Z88.8 Allergy status to other drugs, medicaments and biological substances; Z91.030 Bee allergy status; Z79.899 Other long term (current) drug therapy
CPT/HCPCS: 99282; 99283

== ENCOUNTER 2021-09-14 16:12 | Emergency (ER) | payer MEDICAID ==
[~2021-09-14] VITALS: Ht 175.3 cm; Wt 122.7 kg
[~2021-09-14 16:12] MED LIST changes: +ARIP15TA19 PO; -ARIP15TA8 PO
[2021-09-14 16:33] VITALS: BP 167/65
== END 2021-09-14 19:23 | disposition left against medical advice (07) ==
LOC: ER 16:13
DX: Z13.30 Encounter for screening examination for mental health and behavioral disorders, unspecified (principal); Z53.21 Procedure and treatment not carried out due to patient leaving prior to being seen by health care provider

== ENCOUNTER 2021-09-24 03:09 | Emergency (ER) | payer MEDICAID ==
[~2021-09-24] VITALS: Ht 175.3 cm; Wt 122.7 kg
--- NOTE | 2021-09-24 03:40 | NUR ---
WHILE DISCUSSING PATIENT'S STATUS, HE BEGAN THREATENING TO DESTROY HOSPITAL PROPERTY.
--- NOTE | 2021-09-24 05:56 | NUR ---
Patient's property ( wallet and phone ) in safe. Voucher # [id number]
[2021-09-24 06:23] LABS: URINE AMPHETAMINE SCREEN POSITIVE (Neg); URINE BARBITUATE SCREEN NEGATIVE (Neg); URINE BENZODIAZEPINES SCREEN NEGATIVE (Neg); URINE CANNABINOID SCREEN NEGATIVE (Neg); URINE COCAINE SCREEN NEGATIVE (Neg); URINE METHADONE SCREEN NEGATIVE (Neg); URINE OPIATE SCREEN NEGATIVE (Neg); URINE PHENCYCLIDINE SCREEN NEGATIVE (Neg)
[2021-09-24 06:26] LABS: BASOPHILS % (AUTO) 0.4 % (0-1); EOSINOPHILS % (AUTO) 0.2 % (0-6); HEMATOCRIT 43.8 % (42.0-52.0); HEMOGLOBIN 15.2 g/dl (14.0-17.9); LYMPHOCYTES # (AUTO) 2.2 X10'3 (1.1-4.8); LYMPHOCYTES % (AUTO) 21.9 % (21-51); MEAN CORPUSCULAR HEMOGLOBIN 31.4 PG (27.0-31.0); MEAN CORPUSCULAR HGB CONC 34.6 g/dL (33.0-36.5); MEAN CORPUSCULAR VOLUME 90.8 FL (78-98); MEAN PLATELET VOLUME 7.8 FL (7.4-10.4); MONOCYTES # (AUTO) 0.7 X10'3 (0-0.9); MONOCYTES % (AUTO) 6.5 % (2-12); NEUTROPHILS # (AUTO) 7.3 X10'3 (1.8-7.7); PLATELET COUNT 263 X10'3 (140-440); RED BLOOD COUNT 4.82 X10'6 (4.70-6.10); RED CELL DISTRIBUTION WIDTH 12.9 % (11.5-14.5); WHITE BLOOD COUNT 10.2 X10'3 (4.5-11.0)
[2021-09-24 06:30] LABS: ALANINE AMINOTRANSFERASE 51 U/L (12-78); ALBUMIN 4.1 G/DL (3.4-5.0); ALBUMIN/GLOBULIN RATIO 1.1 (1.1-1.5); ALKALINE PHOSPHATASE 63 IU/L (46-116); ANION GAP 10 (8-16); ASPARTATE AMINO TRANSFERASE 27 U/L (10-37); BILIRUBIN,TOTAL 0.5 MG/DL (0.1-1.0); BLOOD UREA NITROGEN 13 MG/DL (7-18); BUN/CREATININE RATIO 11.9 (5.4-32.0); CALCIUM 8.8 MG/DL (8.5-10.1); CHLORIDE 106 MMOL/L (99-107); CREATININE 1.09 MG/DL (0.60-1.10); GLUCOSE 89 MG/DL (70-104); POTASSIUM 3.5 MMOL/L (3.5-5.1); SODIUM 144 MMOL/L (135-145); TOTAL CARBON DIOXIDE 28.1 MMOL/L (24-32); TOTAL PROTEIN 7.9 G/DL (6.4-8.2); eGFR 84 ML/MIN
--- NOTE | 2021-09-24 06:30 | NUR ---
Assumed patient care at this time. Patient appears to be sleeping comfortably on stretcher.
[2021-09-24 06:32] LABS: ETHANOL < 0.010 GM/DL (0.0-0.010)
--- NOTE | 2021-09-24 07:30 | NUR ---
Elise thorne to patient. Addendum: 09/24/21 at 0846 justino MENDOZA Water given to patient.
[2021-09-24 08:13] LABS: ACETAMINOPHEN < 2.0 UG/ML (10-30)
--- NOTE | 2021-09-24 08:30 | NUR ---
Patient apppears to be sleeping on stretcher.
[2021-09-24 08:44] VITALS: BP 120/56
--- NOTE | 2021-09-24 10:56 | NUR ---
Aakash with [facility] is at bedside evaluating the patient.
--- NOTE | 2021-09-24 11:55 | NUR ---
Patient eating lunch. No distress observed. Continue to monitor.
--- NOTE | 2021-09-24 13:00 | NUR ---
Patient sitting and awaiting valuables to be brought by Registration. No distress observed. Continue to monitor.
== END 2021-09-24 13:05 | disposition home or self-care (01) ==
LOC: ER 03:10
DX: R45.851 Suicidal ideations (principal); Z20.822 Contact with and (suspected) exposure to COVID-19; F41.9 Anxiety disorder, unspecified; F12.90 Cannabis use, unspecified, uncomplicated; Z59.00 Homelessness unspecified; Z88.8 Allergy status to other drugs, medicaments and biological substances; Z79.899 Other long term (current) drug therapy
CPT/HCPCS: 36415; 80053; 80305; 80320; 80329; 84443; 85025; 87811; 99285

== ENCOUNTER 2021-10-04 04:06 | Emergency (ER) | payer MEDICAID ==
[~2021-10-04] VITALS: Ht 175.3 cm; Wt 118.8 kg
[2021-10-04 04:38] VITALS: BP 154/92
== END 2021-10-04 07:00 | disposition left against medical advice (07) ==
LOC: ER 04:07
DX: F29 Unspecified psychosis not due to a substance or known physiological condition (principal); Z53.21 Procedure and treatment not carried out due to patient leaving prior to being seen by health care provider

== ENCOUNTER 2022-09-12 10:48 | Emergency (ER) | payer MEDICAID ==
[~2022-09-12] VITALS: Ht 177.8 cm; Wt 116.2 kg
[2022-09-12 11:05] VITALS: BP 139/53; PULSE 85; RESP 18; TEMP 99.2; O2SAT 97
== END 2022-09-12 12:55 | disposition home or self-care (01) ==
LOC: ER 10:49
DX: M25.562 Pain in left knee (principal); F12.90 Cannabis use, unspecified, uncomplicated; Z88.8 Allergy status to other drugs, medicaments and biological substances; Z91.030 Bee allergy status; Z79.899 Other long term (current) drug therapy
CPT/HCPCS: 99284

== ENCOUNTER 2023-08-31 05:50 | Emergency (ER) | payer MEDICAID ==
[~2023-08-31] VITALS: Ht 177.8 cm; Wt 118.6 kg
[~2023-08-31 05:50] MED LIST changes: -ARIP15TA19 PO; +ARIP15TA68 PO; -MIRT-116 PO; +MIRT-142 PO
[2023-08-31 05:54] VITALS: TEMP 98.5
[2023-08-31 06:47] LABS: BASOPHILS # (AUTO) 0.1 X10'3 (0-0.2); BASOPHILS % (AUTO) 0.5 % (0-1); EOSINOPHILS # (AUTO) 0.1 X10'3 (0-0.9); EOSINOPHILS % (AUTO) 1.1 % (0-6); HEMATOCRIT 48.3 % (42.0-52.0); HEMOGLOBIN 16.3 g/dl (14.0-17.9); LYMPHOCYTES # (AUTO) 2.4 X10'3 (1.1-4.8); LYMPHOCYTES % (AUTO) 23.6 % (21-51); MEAN CORPUSCULAR HEMOGLOBIN 30.4 PG (27.0-31.0); MEAN CORPUSCULAR HGB CONC 33.7 g/dL (33.0-36.5); MEAN CORPUSCULAR VOLUME 90.3 FL (78-98); MEAN PLATELET VOLUME 7.9 FL (7.4-10.4); MONOCYTES # (AUTO) 0.7 X10'3 (0-0.9); NEUTROPHILS % (AUTO) 67.8 % (42-75); PLATELET COUNT 287 X10'3 (140-440); RED BLOOD COUNT 5.35 X10'6 (4.70-6.10); RED CELL DISTRIBUTION WIDTH 13.7 % (11.5-14.5); WHITE BLOOD COUNT 10.3 X10'3 (4.5-11.0)
[2023-08-31 07:00] LABS: ALBUMIN 4.3 G/DL (3.4-5.0); ANION GAP 11 (8-16); BLOOD UREA NITROGEN 21 MG/DL (7-18); BUN/CREATININE RATIO 21.2 (10.0-20.0); CALCIUM 9.4 MG/DL (8.5-10.1); CHLORIDE 104 MMOL/L (99-107); CREATININE 0.99 MG/DL (0.60-1.10); ETHANOL < 10 MG/DL (<10); GLUCOSE 95 MG/DL (70-104); POTASSIUM 3.3 MMOL/L (3.5-5.1); SODIUM 140 MMOL/L (135-145); TOTAL CARBON DIOXIDE 25.1 MMOL/L (24-32); eCRCL 118 ML/MIN; eGFR > 90 ML/MIN
[2023-08-31 07:16] LABS: URINE AMPHETAMINE SCREEN POSITIVE (Neg); URINE BARBITUATE SCREEN NEGATIVE (Neg); URINE BENZODIAZEPINES SCREEN NEGATIVE (Neg); URINE CANNABINOID SCREEN NEGATIVE (Neg); URINE COCAINE SCREEN NEGATIVE (Neg); URINE METHADONE SCREEN NEGATIVE (Neg); URINE OPIATE SCREEN NEGATIVE (Neg); URINE PHENCYCLIDINE SCREEN NEGATIVE (Neg)
[2023-08-31 10:21] VITALS: BP 144/74; PULSE 85; RESP 16; O2SAT 99
== END 2023-08-31 10:29 | disposition home or self-care (01) ==
LOC: ER 05:51
DX: F41.9 Anxiety disorder, unspecified (principal); Z20.822 Contact with and (suspected) exposure to COVID-19; F12.90 Cannabis use, unspecified, uncomplicated; Z88.8 Allergy status to other drugs, medicaments and biological substances; Z79.899 Other long term (current) drug therapy; Z59.00 Homelessness unspecified
CPT/HCPCS: 36415; 80048; 80305; 80320; 85025; 87811; 99284

== ENCOUNTER 2023-11-08 17:28 | Emergency (ER) | payer MEDICAID ==
[~2023-11-08] VITALS: Ht 175.3 cm; Wt 113.6 kg
[2023-11-08] MEDS: LIDOcaine 1% 30ml preserv. free vial IJ STA (18:27)
[2023-11-08 18:36] VITALS: BP 150/80; PULSE 74; RESP 16; TEMP 98.5; O2SAT 99
== END 2023-11-08 18:38 | disposition home or self-care (01) ==
LOC: ER 17:28
DX: S61.012A Laceration without foreign body of left thumb without damage to nail, initial encounter (principal); F41.9 Anxiety disorder, unspecified; F12.90 Cannabis use, unspecified, uncomplicated; Z88.8 Allergy status to other drugs, medicaments and biological substances; Z79.899 Other long term (current) drug therapy; Z59.00 Homelessness unspecified; W26.0XXA Contact with knife, initial encounter; Y92.89 Other specified places as the place of occurrence of the external cause; Y93.89 Activity, other specified; Y99.8 Other external cause status
CPT/HCPCS: 12001; 99282; J7030; A6258; A6449

== ENCOUNTER 2023-11-15 22:41 | Inpatient (IN) | payer MEDICAID ==
[~2023-11-15] VITALS: Ht 175.3 cm; Wt 113.6 kg
[2023-11-15 23:27] LABS: BASOPHILS # (AUTO) 0.1 X10'3 (0-0.2); BASOPHILS % (AUTO) 0.8 % (0-1); EOSINOPHILS # (AUTO) 0.2 X10'3 (0-0.9); EOSINOPHILS % (AUTO) 1.7 % (0-6); HEMATOCRIT 45.1 % (42.0-52.0); HEMOGLOBIN 15.7 g/dl (14.0-17.9); LYMPHOCYTES # (AUTO) 2.9 X10'3 (1.1-4.8); LYMPHOCYTES % (AUTO) 30.8 % (21-51); MEAN CORPUSCULAR HEMOGLOBIN 31.5 PG (27.0-31.0); MEAN CORPUSCULAR HGB CONC 34.8 g/dL (33.0-36.5); MEAN CORPUSCULAR VOLUME 90.4 FL (78-98); MEAN PLATELET VOLUME 7.9 FL (7.4-10.4); MONOCYTES # (AUTO) 0.6 X10'3 (0-0.9); MONOCYTES % (AUTO) 5.9 % (2-12); NEUTROPHILS # (AUTO) 5.8 X10'3 (1.8-7.7); NEUTROPHILS % (AUTO) 60.8 % (42-75); PLATELET COUNT 269 X10'3 (140-440); RED BLOOD COUNT 4.99 X10'6 (4.70-6.10); WHITE BLOOD COUNT 9.5 X10'3 (4.5-11.0)
[2023-11-15 23:33] LABS: BILIRUBIN,URINE NEGATIVE (Neg); CLARITY,URINE CLEAR (Clear); COLOR,URINE YELLOW (Yellow); GLUCOSE, URINE NEGATIVE (Neg); KETONES,URINE NEGATIVE (Neg); LEUKOCYTE ESTERASE ,URINE NEGATIVE (Neg); NITRITES, URINE NEGATIVE (Neg); OCCULT BLOOD,URINE NEGATIVE (Neg); PROTEIN,URINE NEGATIVE (Neg); UROBILINOGEN,URINE 0.2 E.U/dL (0.2-1.0)
[2023-11-15 23:36] LABS: UA COLLECTION TYPE NON-SPECIFIED
[2023-11-15 23:41] LABS: URINE AMPHETAMINE SCREEN POSITIVE (Neg); URINE BARBITUATE SCREEN NEGATIVE (Neg); URINE BENZODIAZEPINES SCREEN NEGATIVE (Neg); URINE CANNABINOID SCREEN NEGATIVE (Neg); URINE COCAINE SCREEN NEGATIVE (Neg); URINE METHADONE SCREEN NEGATIVE (Neg); URINE OPIATE SCREEN NEGATIVE (Neg); URINE PHENCYCLIDINE SCREEN NEGATIVE (Neg)
[2023-11-16] VITALS (16 sets, daily range): BP systolic 96–158; BP diastolic 47–78; PULSE 57–79; RESP 12–24; TEMP 98.2; O2SAT 97–100
[2023-11-16] MEDS: ondansetron/PF 4mg/2ml inj IV ONE (00:06)
[2023-11-16] MEDS: normal saline 1000ML IV soln IVB ONE (00:07)
[2023-11-16 00:11] LABS: ALBUMIN 3.8 G/DL (3.4-5.0); ANION GAP 5 (8-16); BLOOD UREA NITROGEN 16 MG/DL (7-18); BUN/CREATININE RATIO 14.4 (10.0-20.0); CALCIUM 8.6 MG/DL (8.5-10.1); CHLORIDE 105 MMOL/L (99-107); CREATININE 1.11 MG/DL (0.60-1.10); GLUCOSE 81 MG/DL (70-104); POTASSIUM 3.4 MMOL/L (3.5-5.1); SODIUM 139 MMOL/L (135-145); THYROID STIMULATING HORMONE 4.26 ulU/ml (0.34-4.50); TOTAL CARBON DIOXIDE 29.4 MMOL/L (24-32); eCRCL 101 ML/MIN; eGFR 80 ML/MIN
[2023-11-16] MEDS ORDERED: ondansetron/PF 4mg/2ml inj IV PRN (00:15)
[2023-11-16] MEDS ORDERED: acetaminophen 325mg tablet PO PRN (00:15)
[2023-11-16 00:20] LABS: LITHIUM 1.5 MMOL/L (0.8-1.2)
[2023-11-16] MEDS: charcoal, activated 50 GM/240 ML bottle NG ONE (00:20)
[2023-11-16] MEDS: PEG 3350/Na sulf,bicarb,Cl/KCl oral sol 4 liter bottle PO ONE (00:42)
[2023-11-16] MEDS: normal saline 1000ml 1,000 ML IV SCH (00:44)
[2023-11-16] MEDS ORDERED: sodium bicarbonate (8.4%) 1 mEq/ml syringe IV PRN (00:45)
[2023-11-16] MEDS ORDERED: LORazepam 2 mg/ml vial IV PRN (00:45)
[2023-11-16 01:20] LABS: VALPROATE 38 UG/ML (50-100)
[2023-11-16 01:21] LABS: ETHANOL < 10 MG/DL (<10)
[2023-11-16] MEDS ORDERED: DEXT20CA4 PO (01:32)
[2023-11-16] MEDS ORDERED: DIVA500T9 PO (01:32)
[2023-11-16] MEDS ORDERED: CELE-148 PO (01:34)
[2023-11-16 08:27] LABS: BLOOD UREA NITROGEN 9 MG/DL (7-18); BUN/CREATININE RATIO 10.1 (10.0-20.0); CHLORIDE 104 MMOL/L (99-107); CREATININE 0.89 MG/DL (0.60-1.10); GLUCOSE 88 MG/DL (70-104); POTASSIUM 4.2 MMOL/L (3.5-5.1); SODIUM 140 MMOL/L (135-145); VALPROATE 44 UG/ML (50-100); eCRCL 126 ML/MIN; eGFR > 90 ML/MIN
[2023-11-16 08:31] LABS: ALANINE AMINOTRANSFERASE 30 U/L (12-78); ALBUMIN 3.6 G/DL (3.4-5.0); ALBUMIN/GLOBULIN RATIO 0.9 (1.1-1.5); ALKALINE PHOSPHATASE 76 IU/L (46-116); ANION GAP 4 (8-16); ASPARTATE AMINO TRANSFERASE 34 U/L (10-37); BILIRUBIN,TOTAL 0.7 MG/DL (0.1-1.0); CALCIUM 8.9 MG/DL (8.5-10.1); TOTAL CARBON DIOXIDE 32.1 MMOL/L (24-32); TOTAL PROTEIN 7.6 G/DL (6.4-8.2)
[2023-11-16 08:37] LABS: ACETAMINOPHEN < 2.0 UG/ML (10-30)
[2023-11-16 08:47] LABS: LITHIUM 0.7 MMOL/L (0.8-1.2)
[2023-11-16] MEDS: heparin, porcine 5000 units/ml vial SQ SCH (09:30)
[2023-11-16] MEDS: LidoCAINE 2% Topical Jelly 11mL syringe (UROJET) TOP ONE (10:38)
[2023-11-16 13:13] LABS: ALANINE AMINOTRANSFERASE 26 U/L (12-78); ALBUMIN 3.5 G/DL (3.4-5.0); ALBUMIN/GLOBULIN RATIO 0.9 (1.1-1.5); ALKALINE PHOSPHATASE 74 IU/L (46-116); ANION GAP 5 (8-16); ASPARTATE AMINO TRANSFERASE 17 U/L (10-37); BILIRUBIN,TOTAL 0.8 MG/DL (0.1-1.0); BLOOD UREA NITROGEN 7 MG/DL (7-18); BUN/CREATININE RATIO 7.5 (10.0-20.0); CALCIUM 8.4 MG/DL (8.5-10.1); CHLORIDE 104 MMOL/L (99-107); CREATININE 0.93 MG/DL (0.60-1.10); GLUCOSE 80 MG/DL (70-104); POTASSIUM 3.8 MMOL/L (3.5-5.1); SODIUM 140 MMOL/L (135-145); TOTAL CARBON DIOXIDE 31.5 MMOL/L (24-32); TOTAL PROTEIN 7.2 G/DL (6.4-8.2); eCRCL 120 ML/MIN; eGFR > 90 ML/MIN
[2023-11-16 13:16] LABS: ACETAMINOPHEN < 2.0 UG/ML (10-30)
[2023-11-16 14:53] LABS: LITHIUM 0.5 MMOL/L (0.8-1.2)
[2023-11-16] MEDS ORDERED: lactose-reduced food (Ensure Enlive) - 237ml bottle PO SCH (18:00)
== END 2023-11-16 17:34 | disposition home or self-care (01) | DRG 817 ==
LOC: ER 22:42 → ED HOLD 11-16 00:15 → EDBEDREQ 11-16 01:28 → CICU 2S 11-16 02:00
PROVIDERS: ADMIT Surgery; ATTEND Surgery
DX: T43.622A Poisoning by amphetamines, intentional self-harm, initial encounter (principal); R56.9 Unspecified convulsions; F41.9 Anxiety disorder, unspecified; Y92.89 Other specified places as the place of occurrence of the external cause; Z59.00 Homelessness unspecified; Z20.822 Contact with and (suspected) exposure to COVID-19; Z88.8 Allergy status to other drugs, medicaments and biological substances
CPT/HCPCS: 36415; 74018; 80048; 80053; 80164; 80178; 80305; 80320; 80329; 81003; 82140; 84443; 84484; 85025; 87081; 87811; 93005; 96374; 99291; G0378; J1644; J2405; J7030

== ENCOUNTER 2023-11-19 16:53 | Emergency (ER) | payer MEDICAID ==
[~2023-11-19] VITALS: Ht 170.2 cm; Wt 78.0 kg
[~2023-11-19 16:53] MED LIST changes: +CELE-148 PO; +DEXT20CA4 PO; -DEXT30CA6 PO; -DIPH50CA37 PO; +DIVA500T9 PO; -LORA-269 PO; -MIRT-142 PO; -QUET-1 PO
[2023-11-19 17:31] VITALS: BP 124/70; PULSE 70; RESP 16; TEMP 97.9; O2SAT 99
== END 2023-11-19 17:33 | disposition home or self-care (01) ==
LOC: ER 16:54
DX: S61.012D Laceration without foreign body of left thumb without damage to nail, subsequent encounter (principal); Z48.02 Encounter for removal of sutures; Z88.8 Allergy status to other drugs, medicaments and biological substances; Z91.030 Bee allergy status; X58.XXXD Exposure to other specified factors, subsequent encounter
CPT/HCPCS: 99281

== ENCOUNTER 2024-08-27 23:29 | Emergency (ER) | payer MEDICAID ==
--- NOTE | 2024-08-27 23:39 | Physician Documentation ---
History of Present Illness ~ Chief Complaint: 5150 Stated Complaint: 5150 Time Seen by MD: 23:38 OK to notify your PCP?: Yes Primary Medical Doctor: Jeanie JAIN Source: patient, police Mode of Arrival: Police Exam Limitations: clinical condition HPI Chief Complaint: 5150 Caveat: None Independent Historians: History of Present Illness: Patient is a 28-year-old man was had frequent ER visits here for suicidal ideations. Patient is brought in by police from [place] because he was running out into traffic. He told the police that he did not want to live that he was trying to kill himself. Patient had been driving with a friend when they stopped for gas at the [employer] and station in [place]. His girlfriend called him to tell him that she was breaking up with him in the they needed to take a break. That is when he decided to run out into traffic to prove a point. Patient states that he was not actually suicidal and that he was doing that to manipulate his girlfriend. Patient does state however that he did not care if he but they who was in actually running into traffic to actually kill himself. Review of systems: All systems were reviewed and are negative except for what is indicated in the history of present illness. Past Medical History: ADHD, bipolar illness, autism Past Surgical History: Noncontributory Social History: Please call marijuana use, denies alcohol use, denies other drug use, no tobacco use Medications: Reviewed as documented Nursing Notes Allergies: Reviewed as documented in Nursing Notes Medication Reconciliation Allergies: Coded Allergies: bupropion (Verified Adverse Reaction, Unknown, hyper aggressive, 11/19/23) Uncoded Allergies: bee stings (Allergy, Intermediate, 05/14/17) Scheduled Aripiprazole (Abilify Maintena), 400 MG IM Q21D, (Reported) Aripiprazole (Aripiprazole), 1 TAB PO DAILY Aripiprazole (Abilify), 1 TAB PO DAILY, (Reported) Celecoxib (Celecoxib), 1 CAP PO BID, (Reported) Dextroamphetamine/Amphetamine (Dextroamp-Amphet ER 20 mg Cap), 1 CAP PO QAM, (Reported) Divalproex ER* (Depakote ER*), 2 TAB PO DAILY, (Reported) [place] Carbonate (LITHIUM CARBONATE tablet), 1 TAB PO HS, (Reported) Propranolol Hcl (Propranolol Hcl), 1 TAB PO BID, (Reported) Past Medical History Past Medical History: *PSYCH*, Anxiety Past Surgical History: no surgical history Alcohol Use: None Drug Use: none Lives with: Family Lives In: Homeless Review of Systems All Other Systems at this time: Reviewed and Negative ROS Patient denies any other acute symptoms other than above. All other systems are negative Physical Exam Vital Signs: RN Vital Signs have been reviewed: Yes Pulse Oximetry Reflects: adequate oxygenation Physical Exam General Appearance: No distress, poor hygiene HEENT: Normal OP, moist oral mucosa, PERRL, EOMI Neck: supple, normal ROM, trachea midline Pulmonary: No respiratory distress, CTA, BS equal Cardiac: RRR, no murmur, rub or gallop, GI: nondistended, soft, nontender, normal bowel sounds, no guarding, no rebound Extremities: normal ROM, no swelling, non-tender Skin: intact, dry, warm, no rashes Neuro: AAOx3, speech is clear, no focal motor weakness Psych: Patient's mood is labile. Patient making noises and speaking in very high pitched like a female. Patient is denying suicidal ideations. Patient states that he knows the drill and that he will speak with [place] tomorrow."Speech is clear. Speech is mildly pressured, no delusions or hallucinations. Progress Results/Orders Results/Orders Orders - ROMA ROJO MD Urinalysis (08/27/24 23:39) Drug Screen, Urine (08/27/24 23:39) Med Rec (08/27/24 23:39) Close Observation Level (08/27/24 23:39) Covid19 Binax Poc Result Entry (08/27/24 23:39) Regular Diet (08/28/24 Breakfast) Completed Orders - ROMA ROJO MD Cbc/Diff (08/27/24 23:39) Ethanol (08/27/24 23:39) TSH (08/27/24 23:39) BMP (08/27/24 23:39) Vital Signs 08/27/24 08/27/24 08/28/24 23:32 23:44 00:17 Temp 98.2 98.2 Pulse 75 75 Resp 16 18 18 B/P (MAP) 160/80 160/80 (106) Pulse Ox 96 96 Laboratory Tests Test 08/28/24 00:13 08/28/24 00:14 White Blood Count 9.8 Red Blood Count 5.25 Hemoglobin 16.2 Hematocrit 45.6 Mean Corpuscular Volume 86.9 Mean Corpuscular Hemoglobin 30.9 Mean Corpuscular Hemoglobin Concent 35.5 Red Cell Distribution Width 13.1 Platelet Count 276 Mean Platelet Volume 8.1 Neutrophils (%) (Auto) 69.2 Lymphocytes (%) (Auto) 21.6 Monocytes (%) (Auto) 7.7 Eosinophils (%) (Auto) 0.9 Basophils (%) (Auto) 0.6 Neutrophils # (Auto) 6.8 Lymphocytes # (Auto) 2.1 Monocytes # (Auto) 0.8 Eosinophils # (Auto) 0.1 Basophils # (Auto) 0.1 CBC Comment Sodium Level 139 Potassium Level 3.5 Chloride Level 104 Carbon Dioxide Level 24.1 Anion Gap 11 Blood Urea Nitrogen 17 Creatinine 1.09 Estimated GFR/1.73 m2 82 BUN/Creatinine Ratio 15.6 Glucose Level 102 Calcium Level 9.0 Albumin 4.2 Thyroid Stimulating Hormone (TSH) 2.26 Chemistry Comments Ethyl Alcohol Level < 10 SARS-CoV-2 Antigen (Rapid) Negative Medical Decision Making Findings Differential diagnosis includes but is not limited to: Suicidal ideations, claus, bipolar illness, schizoaffective disorder, substance abuse Laboratory data independent interpretation: CBC: Unremarkable CMP: Unremarkable Toxicology: Negative for alcohol Serology: COVID negative Emergency department course/medical decision-making: Patient is a 28-year-old man who has had frequent ER visits for same. Patient has poor impulse control. Patient states that he is not on any medications. Patient is medically cleared and stable for psychiatric evaluation by [facility]. Consultation/communications: [facility] consult pending Departure Time of Disposition: 23:51 Disposition: 30 STILL A PATIENT Impression: Primary Impression: Suicidal ideation Condition: Stable Discharge Instructions: Suicidal Feelings: How to Help Yourself Referrals: NO PRIMARY CARE PROVIDER (PCP) Education Educated: Patient Educated regarding: diagnosis, treatment Signature Scribe Signature: No scribe Attestation: No scribe ROMA ROJO MD Aug 27, 2024 23:39
[2024-08-28 00:25] LABS: MEAN PLATELET VOLUME 8.1 FL (7.4-10.4); RED CELL DISTRIBUTION WIDTH 13.1 % (11.5-14.5)
[2024-08-28 00:46] LABS: CREATININE 1.09 MG/DL (0.60-1.10); TOTAL CARBON DIOXIDE 24.1 MMOL/L (24-32); eGFR 82 ML/MIN
[2024-08-28 00:50] LABS: ETHANOL < 10 MG/DL (<10)
[2024-08-28] MEDS: haloperidol lactate 5mg/ml inj IM ONE (02:39)
[2024-08-28 12:46] LABS: LEUKOCYTE ESTERASE ,URINE NEGATIVE (Neg); NITRITES, URINE NEGATIVE (Neg); OCCULT BLOOD,URINE NEGATIVE (Neg)
[2024-08-28 12:57] LABS: URINE AMPHETAMINE SCREEN NEGATIVE (Neg); URINE BARBITUATE SCREEN NEGATIVE (Neg); URINE BENZODIAZEPINES SCREEN NEGATIVE (Neg); URINE CANNABINOID SCREEN NEGATIVE (Neg); URINE COCAINE SCREEN NEGATIVE (Neg); URINE METHADONE SCREEN NEGATIVE (Neg); URINE OPIATE SCREEN NEGATIVE (Neg); URINE PHENCYCLIDINE SCREEN NEGATIVE (Neg)
[2024-08-28 13:00] LABS: UA COLLECTION TYPE CLN CATCH MIDSTREAM
[2024-08-28 13:01] LABS: COARSE GRANULAR CAST 0-3 /LPF (NEGATIVE); MUCUS STRANDS MANY /LPF (Neg); SQUAMOUS EPITHELIAL CELL,UR MANY /LPF (FEW)
[2024-08-28 13:02] LABS: AMORPHOUS URATES 1+
[2024-08-28 16:17] VITALS: BP 130/70; PULSE 86; RESP 17; TEMP 97.1; O2SAT 96
== END 2024-08-28 17:34 | disposition home or self-care (01) ==
LOC: ER 23:30
DX: R45.851 Suicidal ideations (principal); F12.90 Cannabis use, unspecified, uncomplicated; F31.9 Bipolar disorder, unspecified; F41.9 Anxiety disorder, unspecified; Z88.8 Allergy status to other drugs, medicaments and biological substances; Z79.899 Other long term (current) drug therapy; Z59.00 Homelessness unspecified; Z20.822 Contact with and (suspected) exposure to COVID-19
CPT/HCPCS: 36415; 80048; 80305; 80320; 81001; 84443; 85025; 87811; 96372; 99285; J1200; J1630; J2060

== ENCOUNTER 2025-01-24 17:09 | Inpatient (IN) | payer MEDICAID ==
[~2025-01-24] VITALS: Ht 175.3 cm; Wt 129.7 kg
--- NOTE | 2025-01-24 18:09 | Physician Documentation ---
History of Present Illness ~ Chief Complaint: Mental Health Eval Stated Complaint: MH EVAL Time Seen by MD: 18:03 [facility] 29-year-old male with a past medical history of PTSD, bipolar, borderline personality ADHD brought in by [facility] due to verbalizing intent to harm himself and/or others to receive mental reset. He has intent would include jumping in the traffic or an and/or cutting himself and/or assaulting somebody. Uses cannabis daily and drinks alcohol occasionally. He is alert and oriented and redirectable. He is conversation is he is very clear. Medication Reconciliation Allergies: Coded Allergies: bupropion (Verified Adverse Reaction, Unknown, hyper aggressive, 11/19/23) Uncoded Allergies: bee stings (Allergy, Intermediate, 05/14/17) Scheduled Aripiprazole (Abilify Maintena), 400 MG IM Q21D, (Reported) Discontinued Medications Aripiprazole (Aripiprazole), 1 TAB PO DAILY Discontinued Reason: Pt. condition changed Aripiprazole (Abilify), 1 TAB PO DAILY, (Reported) Discontinued Reason: Pt. condition changed Celecoxib (Celecoxib), 1 CAP PO BID, (Reported) Discontinued Reason: Pt. condition changed Dextroamphetamine/Amphetamine (Dextroamp-Amphet ER 20 mg Cap), 1 CAP PO QAM, (Reported) Discontinued Reason: Pt. condition changed Divalproex ER* (Depakote ER*), 2 TAB PO DAILY, (Reported) Discontinued Reason: Pt. condition changed [place] Carbonate (LITHIUM CARBONATE tablet), 1 TAB PO HS, (Reported) Discontinued Reason: Pt. condition changed Propranolol Hcl (Propranolol Hcl), 1 TAB PO BID, (Reported) Discontinued Reason: Pt. condition changed Past Medical History Past Medical History: *PSYCH*, Anxiety Past Surgical History: no surgical history Alcohol Use: None Drug Use: none Lives with: Family Lives In: Homeless Review of Systems All Other Systems at this time: Reviewed and Negative Psychiatric: Reports: see HPI, suicidal Physical Exam Vital Signs: RN Vital Signs have been reviewed: Yes, Temperature: 98.0, Source: Temporal, Heart Rate: 93, Respiratory Rate: 16, BP: 181/86, Pulse Oximetry: 100, Weight: 106.800 Oxygen Flow Rate: 0 General Appearance: alert, WD/WN, mild distress EENT: PERRL/EOMI Head: normal inspection Neck: non-tender; No: thyromegaly Respiratory: lungs clear Chest: no accessory muscle use Cardiovascular: normal peripheral pulses Extremities: non-tender Back: normal inspection Neurologic: oriented x4 Motor / Sensory: no motor deficit, no sensory deficit Cerebellar function exam: normal Appearance/Memory/Insight: appropriate appearance Behavior/Eye contact/Speech: cooperative, good eye contact, normal speech Thought/Hallucinations: no apparent hallucination, flight of ideas Affect: anxious Skin: warm/dry Progress Results/Orders Results/Orders Orders - ASHANTI VERMA Med Rec (01/24/25 18:04) 1799.11 (01/24/25 18:04) Close Observation Level (01/24/25 18:04) Covid19 Binax Poc Result Entry (01/24/25 18:04) Substance Use Navigator (01/24/25 18:04) Regular Diet (01/25/25 Breakfast) Completed Orders - ASHANTI VERMA Urinalysis (01/24/25 18:04) Drug Screen, Urine (01/24/25 18:04) BMP (01/24/25 18:55) Ethanol (01/24/25 18:55) TSH (01/24/25 18:55) Cbc/Diff (01/24/25 18:59) Vital Signs 01/24/25 01/24/25 01/25/25 01/25/25 17:10 19:40 05:56 08:13 Temp 98.0 97.7 Pulse 93 69 Resp 16 01 25 16 B/P (MAP) 181/86 141/65 (90) Pulse Ox 100 100 O2 Flow Rate 0 Laboratory Tests Test 01/24/25 18:16 01/24/25 19:08 01/24/25 20:42 CBC Comment Chemistry Comments White Blood Count 8.4 Red Blood Count 5.26 Hemoglobin 16.0 Hematocrit 46.4 Mean Corpuscular Volume 88.3 Mean Corpuscular Hemoglobin 30.4 Mean Corpuscular Hemoglobin Concent 34.4 Red Cell Distribution Width 12.7 Platelet Count 256 Mean Platelet Volume 7.7 Neutrophils (%) (Auto) 63.6 Lymphocytes (%) (Auto) 28.5 Monocytes (%) (Auto) 5.9 Eosinophils (%) (Auto) 1.4 Basophils (%) (Auto) 0.6 Neutrophils # (Auto) 5.4 Lymphocytes # (Auto) 2.4 Monocytes # (Auto) 0.5 Eosinophils # (Auto) 0.1 Basophils # (Auto) 0.1 Sodium Level 141 Potassium Level 3.6 Chloride Level 107 Carbon Dioxide Level 27.4 Anion Gap 7 L Blood Urea Nitrogen 14 Creatinine 0.93 Estimated GFR/1.73 m2 > 90 BUN/Creatinine Ratio 15.1 Glucose Level 102 Calcium Level 8.4 L Albumin 3.9 Thyroid Stimulating Hormone (TSH) 1.24 Ethyl Alcohol Level < 10 Urine Specimen Description Cln catch midstream Urine Color Yellow Urine Clarity Clear Urine pH 6.0 Urine Specific Milo >=1.030 Urine Protein Negative Urine Glucose (UA) Negative Urine Ketones Negative Urine Occult Blood Negative Urine Nitrite Negative Urine Bilirubin Negative Urine Urobilinogen 0.2 Urine Leukocyte Esterase Negative Volume Urine Centrifuged 10 ml Urine Comment Urine Opiates Screen Negative Urine Methadone Screen Negative Urine Fentanyl Screen Positive H Urine Barbiturates Screen Negative Urine Phencyclidine Screen Negative Urine Amphetamines Screen Negative Urine Benzodiazepines Screen Negative Urine Cocaine Screen Negative Urine Cannabinoids Screen Positive Drug Screen Comment SARS-CoV-2 Antigen (Rapid) Negative Medical Decision Making Additional information obtaine: other ([employer]) Findings 29-year-old male brought in by [employer] [facility] because of his intent to harm himself or others if not able to receive psychiatric evaluation. Please see HPI. Patient placed on 1799 and labs are pending. He is medically cleared. Patient is very cooperative not requiring any medications at this time. Differential Dx:Considerations: Include: Alcohol abuse, Anxiety, Bipolar disorder, Conversion disorder, Depression, Encephaloathy, Homicidal, Panic disorder, Personality disorder, Schizophrenia, Substance abuse, Suicidal, Other Departure Impression: Primary Impression: Suicidal ideation Additional Impression: Mental disorder Referrals: NO PRIMARY CARE PROVIDER (PCP) Signature Scribe Signature: . Attestation: . ASHANTI VERMA PAC Jan 24, 2025 18:09
[2025-01-24 19:19] LABS: MEAN PLATELET VOLUME 7.7 FL (7.4-10.4); RED CELL DISTRIBUTION WIDTH 12.7 % (11.5-14.5)
[2025-01-24 19:42] LABS: CREATININE 0.93 MG/DL (0.60-1.10); ETHANOL < 10 MG/DL (<10); TOTAL CARBON DIOXIDE 27.4 MMOL/L (24-32); eCRCL 119 ML/MIN; eGFR > 90 ML/MIN
[2025-01-24 21:15] LABS: URINE AMPHETAMINE SCREEN NEGATIVE (Neg); URINE BARBITUATE SCREEN NEGATIVE (Neg); URINE BENZODIAZEPINES SCREEN NEGATIVE (Neg); URINE CANNABINOID SCREEN POSITIVE (Neg); URINE COCAINE SCREEN NEGATIVE (Neg); URINE METHADONE SCREEN NEGATIVE (Neg); URINE OPIATE SCREEN NEGATIVE (Neg); URINE PHENCYCLIDINE SCREEN NEGATIVE (Neg)
[2025-01-24 21:19] LABS: LEUKOCYTE ESTERASE ,URINE NEGATIVE (Neg); NITRITES, URINE NEGATIVE (Neg); OCCULT BLOOD,URINE NEGATIVE (Neg)
[2025-01-24 21:25] LABS: UA COLLECTION TYPE CLN CATCH MIDSTREAM
[2025-01-25 16:38] VITALS: BP 122/87; PULSE 107; RESP 16; TEMP 98.6; O2SAT 97
[2025-01-25] MEDS ORDERED: mag hydrox/Alum hydrox/simeth 30ml oral suspension PO PRN (16:55)
[2025-01-25 19:00] VITALS: RESP 16; O2SAT 100
[2025-01-25 20:00] VITALS: BP 150/80; PULSE 75; RESP 16; TEMP 97.7; O2SAT 100
[2025-01-26 07:00] VITALS: RESP 18; O2SAT 95
[2025-01-26 08:01] LABS: MEAN PLATELET VOLUME 7.9 FL (7.4-10.4); RED CELL DISTRIBUTION WIDTH 12.8 % (11.5-14.5)
[2025-01-26 08:36] LABS: CHOL/HDL RATIO 3.8 (0.00-4.99); CREATININE 0.99 MG/DL (0.60-1.10); LDL CHOLESTEROL 104 MG/DL (50-100); TOTAL CARBON DIOXIDE 29.7 MMOL/L (24-32); eCRCL 112 ML/MIN; eGFR > 90 ML/MIN
[2025-01-26 08:37] VITALS: BP 96/64; PULSE 75; RESP 20; TEMP 97.1; O2SAT 95
[2025-01-26] MEDS: haloperidol lactate 5mg/ml inj ONE (18:21)
[2025-01-26 19:00] VITALS: RESP 18; O2SAT 99
--- NOTE | 2025-01-26 19:32 | HISTORY AND PHYSICAL ---
History of Present Illness CC: "I want to hurt myself or someone else" Admission Diagnosis: SI/HI Primary Medical Doctor: Yue Pizano History of Present Illness This is a 29 year old male with a significant psychiatric history which includes, SI/HI, Schizoaffective-bipolar type, borderline personality disorder, PTSD, ADHD, autism who was brought in by law enforcement for psychiatric evaluation after verbalizing intent to harm himself and/or others. The patient reported that his intent included jumping into traffic, cutting himself, and/or assaulting someone in order to obtain medical health treatment. The patient reports ongoing emotional distress and difficulty managing impulsive behavior, prompting him to make suicidal/homicidal statements in the context of seeking healthcare. He currently denies hallucinations or delusions. He has an extensive history of admissions into this facility for psychiatric care. Allergies: Coded Allergies: bupropion (Verified Adverse Reaction, Unknown, hyper aggressive, 11/19/23) Uncoded Allergies: bee stings (Allergy, Intermediate, 05/14/17) Past Medical History Past Medical History: *PSYCH*, Anxiety, Bipolar, Schizophrenia (Schizoaffective-Bipolar type, Borderline personality disorder, PTSD, ADHD,) Past Surgical History Past Surgical History: no surgical history Past Family History Patient History: Patient reports no known family medical history. Past Social History Smoking: Non-Smoker Alcohol Use: Heavy (States he drinks 3/5th to a 5th once a week on binges) Drug Use: Marijuana Lives with: Alone Lives In: Home Occupation: unemployed Domestic Violence: Neg Personal History Uses Alcohol: Yes ETOH - How Much and Last Used: Binge drinks once weekly 3/5ths to a fifth of hard liquor Uses Recreational Drugs: Yes Heroin and/or Methadone: No Alcohol Use: Yes Cocaine: No Inhalents: No Amphetamines: No Marijuana Use: Yes Sedatives: No Tranquilizers: No Tobacco Use: No Caffeine Use: No Current Living Situation: House/APT Does Patient Plan to Continue: Yes Patient Lives With: Family Marital Status: Single Do you Work: No Do You Want to Work?: No Social Activity "loner" per patient [employer] Importance to Patient: Low Legal Status: Voluntary (5150) Service: No Developmental Histroy Place of : [place] Psychiatric/substance abuse pr: No Has patient been abused: No Has Abuse Been Reported: No Mental Status Exam OBSERVATION Appearnace: Disheveled, Other (poor hygiene, wearing hospital scrubs) Speech: Tangential, Pressured, Other (rapid, disorganized) Eye Contact: Avoidant Motor Activity: Restless Affect: Labile Comments Congruent with mood MOOD Mood: Anxious, Angry, Depressed, Irritable COGNITION Orientation Impairment: None Memory Impairment: None Attention: Distracted Comments Redirectable at present Intellect: delayed (Autistic per patient) PERCEPTION Hallucinations: None Other: None THOUGHTS Suicidality: Ideation, Plan, Self-harm Homicidality: Aggressive, Intent Delusions: None BEHAVIOR Behavior: Guarded, Hyperactive, Agitated, Bizarre INSIGHT Insight: Poor Judgment: Poor Assessment/Plan Problems/Diagnosis: (1) Suicidal ideation (2) Homicidal ideation (3) Schizoaffective disorder, bipolar type (4) Borderline personality disorder (5) Post traumatic stress disorder (PTSD) Additional Plan Need for Hospitalization: Patient continues to endorse SI/HI with plan and intent. Recommend inpatient psych admission for safety, stabilization and med review. DX: SI/HI Schizoaffective Bipolar type BPD PTSD ADHD Assessment: 29 year old male with psych history of SI/HI, PTSD, bipolar disorder, BPD, ADHD, Schizoaffective-bipolar type who presents with SI/HI and emotional distress and desire for psychiatric care. Though currently calm and organized during the interview, he remains at elevated risk due to impulsively and stated intent. Recommend inpatient psychiatric admission for safety and stabilization. Plan: Medications: Continue Abilify Maintena 400mg Q28 days Continue Hydroxyzine 50mg PO Q 6hrs PRN ADD *Zydis 10mg daily *Depakote 1000mg BID (check level this weekend) Safety- Continued monitoring for SI/HI-restraints Patient is enouraged to attend therapy groups, precautions continued, emergency procedures, treatment options, and side effects of medications reviewed. Length of stay 7-10 days Discharge plan: Patient likely to discharge home CODING VISIT-PSYCHIATRY Date of Service: Jan 26, 2025 Billing Provider: NASH CHAVEZ NP Psych Common Visit Codes: [id number] INP/OBS CARE (High) NASH CHAVEZ NP Jan 26, 2025 19:32
--- NOTE | 2025-01-26 19:42 | HISTORY AND PHYSICAL-Residence ---
History & Physical Providers to CC Resident Creating Document: DEEKALYANIQUINN, GEOVANI ~ History of Present Illness Primary Medical Doctor: Yue Pizano Reason for Admit\Complaint: Psychiatric Illness History of Present Illness This is 29 year old male admitted to adult mental health unit, for pyschiatric illness,Patient reports he was walking around and asking for help. psychiatric history which includes, SI/HI, Schizoaffective-bipolar type, borderline personality disorder, PTSD, ADHD, He reports no chest pain, no nausea vomitting, or sob. Denies abdominal pain. Denies any active medical complain at this moment. 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 Allergies: Coded Allergies: bupropion (Verified Adverse Reaction, Unknown, hyper aggressive, 11/19/23) Uncoded Allergies: bee stings (Allergy, Intermediate, 05/14/17) Home Medications Home Medications Active Reported Abilify Maintena (Aripiprazole) 400 Mg Suser.syr 400 Mg IM Q28D Past Medical History Past Medical History Denies past medical history. Past Surgical History Surgical History Comment Reports pilonidial sinus surgery Reports Miguelito was placed in left leg Family History Family History: Patient reports no known family medical history. Past Social History Social History Comment Denies smoking ciggrate Denies alcohol Smokes and drinks marijuana. Lives in home by himself. Lives with: Family Lives In: Homeless ROS ROS All reviewed and negative except for pertinent positive findings mentioned in HPI. Psychiatric: Reports: suicidal Exam Vitals: Vital Signs Date Time Temp Pulse Resp B/P (MAP) Pulse Ox O2 Delivery O2 Flow Rate FiO2 01/26/25 18:21 15 01/26/25 08:37 97.1 75 96/64 (75) 95 Room Air 01/24/25 17:10 0 General: General: awake, alert oriented to place, time, and person HEENT: No pallor present, no icterus, moist mucous membranes Neck: No masses and tenderness Resp: Unlabored. Lungs clear to auscultation bilaterally. Chest: Normal expansion. Cardiovascular: Regular Rate and rhythm, normal S1 and S2 without murmur, rub or gallop Abdomen: Soft and mildly tender in epigastrium, no organomegaly, no guarding and rigidity, bowel sounds present Neuro: No focal weakness in the upper and lower limb muscles, power of the muscles 5/5 bilateral upper and lower extremities, normal reflexes bilaterally. Cranial nerves intact Extremities: No cyanosis,clubbing or edema Skin: Warm and Dry. No lesions Diagnostic Data Last Recorded Lab Results: 01/26/2572101/26/25721 Additional Plan This is 29 year old male admitted for psychiatric illness, he denies any active complain at this moment. Psychiatric Illness As per psychiatrist team. Hyperlipidemia Cholestrol 154 Lifestyle modifiction, diet ,exercise is encouraged. LDL 104 Will continue to monitor patient. Financial problems. station worker consulted. Hospitalist team will continue to monitor patient. Quinn Dee PGY 1 IM Date of Service: Jan 26, 2025 Billing Provider: SALOMÓN TILLMAN MD, SANJAY, RES Jan 26, 2025 19:42
[2025-01-26 20:00] VITALS: RESP 20
[2025-01-26] MEDS: divalproex 250mg tablet, delayed-release PO SCH (21:45)
[2025-01-27 07:00] VITALS: RESP 20
[2025-01-27] MEDS: OLANZapine 5mg rapidly disint. tablet PO SCH (08:01)
[2025-01-27 08:45] VITALS: RESP 20
[2025-01-27] MEDS: haloperidol lactate 5mg/ml inj ONE (10:19)
[2025-01-27] MEDS: haloperidol lactate 5mg/ml inj IM ONE (10:21)
[2025-01-27 19:00] VITALS: RESP 20
[2025-01-27 20:00] VITALS: RESP 20
--- NOTE | 2025-01-27 20:53 | PROGRESS NOTE ---
Progress Note Dictate Providers to CC ~ Antibiotic Ordered?: N/A Objective Vitals Vital Signs Date Time Temp Pulse Resp B/P (MAP) Pulse Ox O2 Delivery O2 Flow Rate FiO2 01/27/25 17:44 18 01/27/25 08:45 Room Air 01/26/25 19:00 99 01/26/25 08:37 97.1 75 96/64 (75) 01/24/25 17:10 0 Lab Results: 01/26/25 0722 01/26/25 0722 Problem\\Assessment\\Plan Problems/Diagnosis: (1) Suicidal ideation (2) Homicidal ideation (3) Schizoaffective disorder, bipolar type (4) Borderline personality disorder (5) Post traumatic stress disorder (PTSD) Psychiatrist's Progress Note Date of Service: Jan 27, 2025 Time of Evaluation: 10:45 Notes Admission History: This is a 29 year old male with a significant psychiatric history which includes, SI/HI, Schizoaffective-bipolar type, borderline personality disorder, PTSD, ADHD, autism who was brought in by law enforcement for psychiatric evaluation after verbalizing intent to harm himself and/or others. The patient reported that his intent included jumping into traffic, cutting himself, and/or assaulting someone in order to obtain medical health treatment. The patient reports ongoing emotional distress and difficulty managing impulsive behavior, prompting him to make suicidal/homicidal statements in the context of seeking healthcare. He currently denies hallucinations or delusions. He has an extensive history of admissions into this facility for psychiatric care. Patient's Status and Progress CC: "I want my meds NOW or im gonna hurt people" Progress towards goals: No progress, SI/HI behaviors, seclusion and restraints being used frequently ROS: constitutional, psych, neuro, symptoms reviewed and negative except per HPI Appearnace: Disheveled, Inappropriate Speech: Tangential, Pressured, Other (cussing, loud) Eye Contact: Avoidant Motor Activity: Slowed Affect: Labile Comments congruent with mood Mood: Anxious, Angry, Depressed, Irritable Comments Intermittent explosive behavior Orientation Impairment: None Memory Impairment: None Attention: Normal Hallucinations: None Other: None Suicidality: Ideation, Plan Homicidality: Aggressive, Intent Delusions: Grandiose Behavior: Guarded, Agitated, Aggressive, Bizarre Insight: Poor Judgment: Poor Plan Need for Hospitalization: Patient continues to endorse SI/HI with plan and intent. Intermittent use of restraints due to behavior. Recommend inpatient psych admission for safety, stabilization and med review. DX: SI/HI Schizoaffective Bipolar type BPD PTSD ADHD Assessment: Remains in seclusion with intermittent use of restraints. Explosive behavior in the context of wanting meds and/or asking to be restrained. Patient continues to endorse SI/HI and bizarre behaviors, several code greys called within the last 24 hours. Medications adjusted. Plan: Medications: Continue Abilify Maintena 400mg Q28 days Continue Hydroxyzine 50mg PO Q 6hrs PRN ADD *Zydis 10mg daily *Depakote 1000mg BID (check level this weekend), increased to 1500mg BID *Clonidine 0.1mg scheduled *Valium 5mg BID PRN DCD PRN Ativan Safety- Continued monitoring for SI/HI-restraints Patient is enouraged to attend therapy groups, precautions continued, emergency procedures, treatment options, and side effects of medications reviewed. Length of stay 7-10 days Discharge plan: Patient likely to discharge home CODING VISIT-PSYCHIATRY Date of Service: Jan 27, 2025 Billing Provider: NASH CHAVEZ NP Psych Common Visit Codes: [id number] INP/OBS CARE(High) NASH CHAVEZ NP Jan 27, 2025 20:53
[2025-01-27] MEDS: divalproex 250mg tablet, delayed-release PO SCH (21:00)
[2025-01-27 21:50] VITALS: BP 107/63; PULSE 91; RESP 20; TEMP 98.4; O2SAT 96
[2025-01-28 07:00] VITALS: RESP 20
[2025-01-28 07:14] VITALS: RESP 18
[2025-01-28 08:29] VITALS: RESP 20
[2025-01-28] MEDS: ziprasidone IM 20mg inj **IM only IM STA (09:24)
[2025-01-28] MEDS: magnesium hydroxide 30ml (MOM) UD suspension PO PRN (12:04)
[2025-01-28 16:10] LABS: CREATININE 1.05 MG/DL (0.60-1.10); TOTAL CARBON DIOXIDE 28.1 MMOL/L (24-32); eCRCL 106 ML/MIN; eGFR 85 ML/MIN
--- NOTE | 2025-01-28 16:56 | PROGRESS NOTE- Residence ---
Progress Note - Resident Providers to CC Resident Creating Document: RADHA ZAMARRIPA, RES ~ Antibiotic Timeout Antibiotic Ordered?: No Subjective The patient was seen and examined at bedside today. He is in the observation room, restrained. He denies any medical complaints. Objective Vital Signs Date Time Temp Pulse Resp B/P (MAP) Pulse Ox O2 Delivery O2 Flow Rate FiO2 01/28/25 16:15 16 01/28/25 08:29 Room Air 01/27/25 21:50 98.4 91 107/63 (78) 96 01/24/25 17:10 0 Result Diagram: 01/26/25 0722 01/28/25 1526 General: Awake and Alert, obese, no acute distress, restrained. HEENT: Conjunctiva pink, Sclera clear, Mucus Membranes moist, poor dentition Neck: Supple without masses and tenderness. Resp: Unlabored. Lungs clear to auscultation bilaterally. Heart: Regular Rate and rhythm, normal S1 and S2 without murmur, rub or gallop. Abdomen: Soft and non tender no organomegaly Extremities: No cyanosis,clubbing or edema. Skin: Warm and Dry. Assessment Assessment This is a 29-year-old male with no past medical history admitted into the mental health unit for the management of schizoaffective disorder, borderline personality disorder and PTSD. Plan Plan Suicidal ideation Homicidal ideation Schizoaffective disorder, bipolar type Borderline personality disorder PTSD Management as per Psychiatry. Labs reviewed. Unremarkable except for mildly elevated LDL which does not warrant pharmacotherapy. Patient does not have any medical conditions or complaints. Disposition: Hospitalist service we will continue monitoring the patient during the course of his hospital stay. Radha Zamarripa MD Internal Medicine Resident, PGY-2 The patient was seen, examined and discussed with the attending physician, Dr. Tillman. Date of Service: Jan 28, 2025 Billing Provider: SALOMÓN TILLMAN MD, SOWMYA MANJARI, RES Jan 28, 2025 16:56
[2025-01-28 19:00] VITALS: RESP 20
[2025-01-28 20:36] VITALS: RESP 20
[2025-01-29 08:00] VITALS: BP 123/72; PULSE 77; RESP 16; TEMP 96.2; O2SAT 98
[2025-01-29 13:29] LABS: MEAN PLATELET VOLUME 8.0 FL (7.4-10.4); RED CELL DISTRIBUTION WIDTH 13.2 % (11.5-14.5)
--- NOTE | 2025-01-29 15:48 | PROGRESS NOTE ---
Progress Note Dictate Providers to CC ~ Antibiotic Ordered?: No Objective Vitals Vital Signs Date Time Temp Pulse Resp B/P (MAP) Pulse Ox O2 Delivery O2 Flow Rate FiO2 01/29/25 14:42 20 01/29/25 08:00 96.2 77 123/72 (89) 98 Room Air Lab Results: 01/29/25 1312 01/28/25 1526 Problem\Assessment\Plan Problems/Diagnosis: (1) Post traumatic stress disorder (PTSD) (2) Autism (3) Schizoaffective disorder, bipolar type (4) Borderline personality disorder Psychiatrist's Progress Note Date of Service: Jan 28, 2025 Time of Evaluation: 16:00 Notes Since admission, patient continues to report boredom and desire to leave the unit. Denies current suicidal or homicidal intent and reiterates that behaviors are directed toward property rather than people. Reports ongoing restlessness and poor sleep; trazodone continues to be ineffective. Aware he has required multiple PRNs and IM medications for agitation; acknowledges they calm him temporarily. Continues to request restraints and seclusion. Insight remains poor regarding safety risks of behaviors. Requests discharge despite lack of behavioral improvement. ROS: Constitutional, psychiatric, and neurologic systems reviewed and negative except as noted in HPI. Since PT.'S Admission Impulsivity and aggression toward property have persisted without sustained improvement. Agitation has temporarily improved after IM medications, then recurred later the same day. Restlessness has remained unchanged. Sleep disturbance has persisted/worsened. Suicidal ideation has improved, now denied. Mental Status Appearance: Casual clothing, hygiene adequate Behavior: Restless, intermittently cooperative, attention-seeking, provocative Speech: Normal rate and volume Affect: Labile, irritable Thought process: Linear, rigid Thought content: No overt delusions; denies SI/HI Psychomotor activity: Increased; pacing and agitation observed Patient's Status and Progress Patient shows minimal progress toward behavioral stabilization. Requires frequent PRNs and IM medications for agitation with only transient benefit. Ongoing dysregulation, poor insight, and repeated requests for restraints/seclusion limit readiness for discharge. Appearnace: Other (appropriate for setting) Speech: Normal Motor Activity: Restless Affect: Labile Mood: Irritable Orientation Impairment: None Memory Impairment: None Attention: Distracted Hallucinations: None Suicidality: None Homicidality: None Delusions: None Behavior: Agitated Insight: Poor Judgment: Poor Treatment EKG ordered Current Medications Medications (Trade) Dose Ordered Sig/Janel Route PRN Reason Start Time Stop Time Status Last Admin Dose Admin Diphenhydramine HCl (Benadryl capsule) 50 mg ONCE ONCE PO 01/24/25 21:00 01/24/25 21:01 DC 01/24/25 21:11 50 MG Lorazepam (Ativan tablet) 2 mg ONCE STAT PO 01/25/25 14:01 01/25/25 14:03 DC 01/25/25 14:09 2 MG Olanzapine (Zyprexa tablet) 10 mg ONCE STAT PO 01/25/25 14:06 01/25/25 14:07 DC 01/25/25 14:09 10 MG Acetaminophen (Tylenol tablet) 650 mg Q4H PRN PO pain 01/25/25 16:55 01/28/25 16:13 650 MG Magnesium Hydroxide (milk of magnesia oral suspension) 30 ml Q12H PRN PO constipation 01/25/25 16:55 01/28/25 12:04 30 ML Chlorpromazine HCl (Thorazine tablet) 50 mg Q6H PRN PO agitation 01/25/25 16:55 01/27/25 15:40 DC 01/27/25 08:00 50 MG Trazodone HCl (Desyrel tablet) 50 mg HS PRN PO Insomnia 01/25/25 16:55 01/28/25 17:37 DC 01/26/25 19:49 50 MG Hydroxyzine HCl (Atarax tablet) 50 mg Q6H PRN PO anxiety 01/25/25 16:55 01/28/25 19:49 50 MG Haloperidol Lactate (Haldol) 10 mg STK-MED ONCE .ROUTE 01/26/25 17:58 01/26/25 17:58 DC 01/26/25 18:21 10 MG Lorazepam (Ativan inj) 2 mg STK-MED ONCE .ROUTE 01/26/25 17:59 01/26/25 17:59 DC 01/26/25 18:21 2 MG Diphenhydramine HCl (Benadryl inj.) 50 mg STK-MED ONCE .ROUTE 01/26/25 18:00 01/26/25 18:00 DC 01/26/25 18:20 50 MG Lorazepam (Ativan tablet) 1 mg ONCE ONCE PO 01/26/25 19:30 01/26/25 19:34 DC 01/26/25 19:38 1 MG Olanzapine (ZyPREXA zydis tablet) 10 mg DAILY PO 01/27/25 08:00 01/29/25 07:57 10 MG Divalproex Sodium (Depakote) 1,000 mg BID PO 01/26/25 20:45 01/27/25 11:46 DC 01/27/25 08:01 1,000 MG Lorazepam (Ativan tablet) 2 mg ONCE ONCE PO 01/27/25 08:00 01/27/25 08:02 DC 01/27/25 10:00 2 MG Haloperidol (Haldol tablet) 10 mg ONCE ONCE PO 01/27/25 08:00 01/27/25 08:02 DC 01/27/25 10:00 10 MG Haloperidol Lactate (Haldol) 5 mg ONCE ONCE IM 01/27/25 10:10 01/27/25 10:13 DC 01/27/25 10:21 5 MG Diphenhydramine HCl (Benadryl inj.) 50 mg ONCE ONCE IM 01/27/25 10:10 01/27/25 10:13 DC 01/27/25 10:19 50 MG Divalproex Sodium (Depakote) 1,500 mg BID PO 01/27/25 20:00 01/29/25 07:57 1,500 MG Clonidine (Catapres tablet) 0.1 mg HS PO 01/27/25 21:00 01/29/25 11:03 DC 01/28/25 19:31 0.1 MG Olanzapine (ZyPREXA tablet) 5 mg TID PRN PO for anxiety/agitation 01/27/25 15:10 01/29/25 14:43 5 MG Diazepam (Valium tablet) 5 mg BID PRN PO for anxiety/agitation 01/27/25 15:10 01/29/25 14:42 5 MG Ziprasidone (Geodon IMIM ONLY) 20 mg ONCE STAT IM 01/28/25 09:03 01/28/25 09:10 DC 01/28/25 09:24 20 MG Diphenhydramine HCl (Benadryl inj.) 50 mg ONCE STAT IM 01/28/25 09:03 01/28/25 09:10 DC 01/28/25 09:23 50 MG Clonidine (Catapres tablet) 0.1 mg TID PO 01/29/25 13:00 01/29/25 14:43 0.1 MG Discharge Discharge deferred; plan remains return to private home once behavior stabilizes and collateral is obtained. Assessment This is a 29-year-old male admitted into the mental health unit for the management of schizoaffective disorder, borderline personality disorder and PTSD. Plan Continue aripiprazole CRUZ; monitor closely for extrapyramidal symptoms. Discontinue trazodone due to lack of efficacy. Prioritize clonidine for impulsivity and restlessness related to ADHD/ASD. Continue PRNs as ordered for agitation. IM medications administered for acute agitation: ziprasidone 20 mg IM and diphenhydramine 50 mg IM this morning with temporary calming effect. THERAPEUTIC INTERVENTIONS: Maintain structured milieu and consistent limit-setting. Minimize reinforcement of maladaptive behaviors, including repeated restraint requests. SAFETY: Continue close observation due to impulsive behaviors and recurrent agitation. Monitor for adverse effects related to cumulative antipsychotic exposure. LEGAL STATUS: 5250 involuntary hold remains in effect. DISPOSITION: Discharge planning remains deferred pending behavioral stabilization and collateral acquisition. Problem List: (1) Autism (2) Post traumatic stress disorder (PTSD) (3) Schizoaffective disorder, bipolar type (4) Borderline personality disorder CODING VISIT-PSYCHIATRY Date of Service: Jan 28, 2025 Billing Provider: PATRICK MEDEL Psych Common Visit Codes: [id number] INP/OBS CARE(High) PATRICK MEDEL Jan 29, 2025 15:48
[2025-01-29 19:00] VITALS: RESP 16; O2SAT 98
--- NOTE | 2025-01-29 20:02 | PROGRESS NOTE ---
Progress Note Dictate Providers to CC ~ Progress Note: HPI / Interval History On interview today, Santiago appeared calmer compared to prior days, though he continues to repeatedly request restraints, seclusion, and medications as coping strategies when distressed. He reports feeling bored, wanting to go home, and believing he does not belong on the unit. He remains upset about having brought himself in involuntarily and continues to justify his disruptive behaviors as attempts to force discharge, demonstrating poor insight into how these behaviors are counterproductive. He was triggered by other residents psychotic behaviors and has been isolating rather than interacting with peers. During the interview he was calm but attempted to engage in a power struggle, which was unsuccessful. Insight and judgment remain very poor, with rigid, concrete logic consistent with autism spectrum traits. He denies intent to harm staff or peers and reiterates that when angry he directs aggression toward property rather than people. Medication adherence remains selective; he continues to accept aripiprazole ER and agreed to the increase in clonidine to 0.1 mg TID for impulse control. Parents were contacted today and provided collateral clarifying longstanding trauma history, developmental delay with emotional immaturity, chronic boredom intolerance, impulsive behaviors, prior serious suicide attempts without clear intent to , and a recently assigned diagnosis of borderline personality disorder by his outpatient therapist. Parents describe restraint/seclusion?seeking as a learned calming strategy from childhood. Discharge discussions remain limited by poor insight and externalization of responsibility. ROS: Constitutional, psychiatric, and neurologic systems reviewed and negative except as noted in HPI. Changes in Signs and Symptoms (since admission) Behavioral agitation mildly improved; remains episodically dysregulated Insight and judgment unchanged and severely limited Impulse control poor, with ongoing maladaptive coping requests Social engagement decreased, increased isolation Emotional regulation labile but slightly calmer during interview PTS STATUS AND PROGESS Santiago demonstrates a slow, uneven trajectory with modest improvement in observable calmness but persistent maladaptive coping, poor insight, and behavioral dysregulation. He remains not psychiatrically stabilized, with continued need for structured containment, behavioral support, and medication adjustment. Ongoing inpatient care is medically necessary to manage safety, impulsivity, and risk of behavioral escalation. Observations / Objective (STAFF / MSE ONLY) Appearance: Age?appropriate Hygiene: Adequate Behavior: Guarded, controlling, intermittently oppositional Speech: Normal rate and volume Affect: Constricted, irritable undertone Thought process: Rigid, concrete Thought content: Preoccupied with discharge and control Psychomotor activity: No agitation observed during interview DC Discharge planning remains premature due to poor insight, behavioral instability, and limited adaptive coping skills. Assessment Clinical Impression Autism spectrum disorder with developmental delay, chronic psychotic disorder, mood dysregulation, and borderline personality traits, currently acutely destabilized with behavioral dysregulation and impaired insight, though with mild interval calming. Strengths and Weaknesses Protective factors include family involvement, outpatient supports, medication responsiveness to aripiprazole, and stated desire not to harm others. Barriers include severe insight deficits, impulsivity, trauma history, maladaptive coping via threats, and intolerance of boredom and frustration. Risk Level History of serious suicide attempts via impulsive behaviors, ongoing threats when dysregulated, and property?directed aggression place him at moderate to high ongoing risk. No current expressed intent to harm others, but risk of behavioral escalation, self?harm through impulsivity, and grave disability remains elevated. Plan MEDICATIONS Continue aripiprazole ER (Abilify Maintena) Increase clonidine to 0.1 mg three times daily for impulse control THERAPEUTIC INTERVENTIONS Behavioral coaching focused on alternative coping strategies Limit?setting with consistent staff approach Encourage structured activity to address boredom intolerance SAFETY Maintain close behavioral monitoring Use restraints or seclusion only if imminent safety risk arises LEGAL STATUS Unchanged DISPOSITION Continue inpatient stabilization; assess need for higher?structure living supports once behavior and insight improve Current Medications Medications (Trade) Dose Ordered Sig/Janel Route PRN Reason Start Time Stop Time Status Last Admin Dose Admin Diphenhydramine HCl (Benadryl capsule) 50 mg ONCE ONCE PO 01/24/25 21:00 01/24/25 21:01 DC 01/24/25 21:11 50 MG Lorazepam (Ativan tablet) 2 mg ONCE STAT PO 01/25/25 14:01 01/25/25 14:03 DC 01/25/25 14:09 2 MG Olanzapine (Zyprexa tablet) 10 mg ONCE STAT PO 01/25/25 14:06 01/25/25 14:07 DC 01/25/25 14:09 10 MG Acetaminophen (Tylenol tablet) 650 mg Q4H PRN PO pain 01/25/25 16:55 01/31/25 00:50 650 MG Magnesium Hydroxide (milk of magnesia oral suspension) 30 ml Q12H PRN PO constipation 01/25/25 16:55 01/28/25 12:04 30 ML Chlorpromazine HCl (Thorazine tablet) 50 mg Q6H PRN PO agitation 01/25/25 16:55 01/27/25 15:40 DC 01/27/25 08:00 50 MG Trazodone HCl (Desyrel tablet) 50 mg HS PRN PO Insomnia 01/25/25 16:55 01/28/25 17:37 DC 01/26/25 19:49 50 MG Hydroxyzine HCl (Atarax tablet) 50 mg Q6H PRN PO anxiety 01/25/25 16:55 01/30/25 20:16 50 MG Haloperidol Lactate (Haldol) 10 mg STK-MED ONCE .ROUTE 01/26/25 17:58 01/26/25 17:58 DC 01/26/25 18:21 10 MG Lorazepam (Ativan inj) 2 mg STK-MED ONCE .ROUTE 01/26/25 17:59 01/26/25 17:59 DC 01/26/25 18:21 2 MG Diphenhydramine HCl (Benadryl inj.) 50 mg STK-MED ONCE .ROUTE 01/26/25 18:00 01/26/25 18:00 DC 01/26/25 18:20 50 MG Lorazepam (Ativan tablet) 1 mg ONCE ONCE PO 01/26/25 19:30 01/26/25 19:34 DC 01/26/25 19:38 1 MG Olanzapine (ZyPREXA zydis tablet) 10 mg DAILY PO 01/27/25 08:00 01/29/25 17:59 10 MG Divalproex Sodium (Depakote) 1,000 mg BID PO 01/26/25 20:45 01/27/25 11:46 DC 01/27/25 08:01 1,000 MG Lorazepam (Ativan tablet) 2 mg ONCE ONCE PO 01/27/25 08:00 01/27/25 08:02 DC 01/27/25 10:00 2 MG Haloperidol (Haldol tablet) 10 mg ONCE ONCE PO 01/27/25 08:00 01/27/25 08:02 DC 01/27/25 10:00 10 MG Haloperidol Lactate (Haldol) 5 mg ONCE ONCE IM 01/27/25 10:10 01/27/25 10:13 DC 01/27/25 10:21 5 MG Diphenhydramine HCl (Benadryl inj.) 50 mg ONCE ONCE IM 01/27/25 10:10 01/27/25 10:13 DC 01/27/25 10:19 50 MG Divalproex Sodium (Depakote) 1,500 mg BID PO 01/27/25 20:00 01/30/25 20:15 1,500 MG Clonidine (Catapres tablet) 0.1 mg HS PO 01/27/25 21:00 01/29/25 11:03 DC 01/28/25 19:31 0.1 MG Olanzapine (ZyPREXA tablet) 5 mg TID PRN PO for anxiety/agitation 01/27/25 15:10 01/29/25 21:07 DC 01/29/25 17:57 5 MG Diazepam (Valium tablet) 5 mg BID PRN PO for anxiety/agitation 01/27/25 15:10 01/30/25 14:08 5 MG Ziprasidone (Geodon IMIM ONLY) 20 mg ONCE STAT IM 01/28/25 09:03 01/28/25 09:10 DC 01/28/25 09:24 20 MG Diphenhydramine HCl (Benadryl inj.) 50 mg ONCE STAT IM 01/28/25 09:03 01/28/25 09:10 DC 01/28/25 09:23 50 MG Clonidine (Catapres tablet) 0.1 mg TID PO 01/29/25 13:00 01/30/25 20:16 0.1 MG Olanzapine (Zyprexa tablet) 10 mg ONCE ONCE PO 01/29/25 21:05 01/29/25 21:07 DC 01/29/25 21:14 10 MG Olanzapine (Zyprexa 5mg tablet) 5 mg TID PRN PO for anxiety/agitation 01/29/25 21:07 01/30/25 20:16 5 MG Clonazepam (klonoPIN 1mg tablet) 1 mg ONCE ONCE PO 01/30/25 13:10 01/30/25 13:17 DC 01/30/25 13:19 1 MG Hydroxyzine HCl (Atarax tablet) 50 mg ONCE ONCE PO 01/30/25 21:05 01/30/25 21:06 DC 01/31/25 00:49 50 MG Clonidine (Catapres tablet) 0.1 mg ONCE ONCE PO 01/30/25 21:05 01/30/25 21:06 DC 01/31/25 00:49 0.1 MG Antibiotic Ordered?: No Objective Vitals Vital Signs Date Time Temp Pulse Resp B/P (MAP) Pulse Ox O2 Delivery O2 Flow Rate FiO2 01/29/25 14:42 20 01/29/25 08:00 96.2 77 123/72 (89) 98 Room Air Lab Results: 01/29/25 1312 01/28/25 1526 Problem\Assessment\Plan Problems/Diagnosis: (1) Post traumatic stress disorder (PTSD) (2) Autism (3) Schizoaffective disorder, bipolar type (4) Borderline personality disorder Psychiatrist's Progress Note Date of Service: Jan 29, 2025 Time of Evaluation: 10:43 CODING VISIT-PSYCHIATRY Date of Service: Jan 29, 2025 Billing Provider: PATRICK MEDEL Psych Common Visit Codes: [id number] INP/OBS CARE(High) PATRICK MEDEL Jan 29, 2025 20:02
[2025-01-29 20:14] VITALS: BP 125/72; PULSE 81; RESP 16; TEMP 97.1; O2SAT 98
[2025-01-30] VITALS (9 sets, daily range): BP systolic 113–141; BP diastolic 50–80; PULSE 64–88; RESP 16–20; TEMP 97.6–98; O2SAT 96–100
[2025-01-30] MEDS: OLANZAPINE 5 MG TABLET PO PRN (09:06)
--- NOTE | 2025-01-30 09:34 | PROGRESS NOTE ---
Progress Note Dictate Providers to CC ~ Progress Note: HPI / Interval History Patient was seen at approximately 0930. He reported that he had just been released from restraints and seclusion, which he requested due to emotional dysregulation. Overnight, he experienced a significant behavioral meltdown after his father was unable to visit, prompting use of seclusion/restraints. Today, he appears calmer and less defensive during interview, though he remains highly perseverative on discharge and going home. Insight into his behaviors remains poor, with continued difficulty recognizing how his actions delay discharge. Judgment remains impaired. He continues to frequently request restraints and seclusion throughout the day as a coping strategy. Medication adherence remains selective but unchanged; he continues to accept scheduled medications. He appears to be responding modestly to the increased clonidine, reporting slightly improved sleep the prior night. Mood remains anxious and frustrated, with ongoing rumination. No interval change in psychotic symptoms noted. Appetite not reported as changed. Given anticipated distress related to an afternoon court hearing, a one?time dose of clonazepam 1 mg was ordered for acute anxiety. Discharge was discussed in treatment team; it remains pending, contingent on establishing appropriate supports and the patients ability to demonstrate more consistent behavioral regulation on the unit. ROS: Constitutional, psychiatric, and neurologic systems reviewed and negative except as noted in HPI. Changes in Signs and Symptoms (since admission) Behavioral agitation persists, with continued restraint/seclusion use Emotional regulation slightly improved compared to admission Sleep mildly improved after clonidine increase Insight and judgment unchanged and poor Perseveration on discharge persists PTS STATUS AND PROGESS The patient demonstrates minimal but measurable calming with recent medication adjustments, though he remains behaviorally unstable with frequent dysregulation and reliance on maladaptive coping strategies. He is not psychiatrically stabilized and continues to require inpatient structure for safety, medication monitoring, and behavioral containment. Continued hospitalization remains medically necessary. Observations / Objective (STAFF / MSE ONLY) Appearance: Age?appropriate Hygiene: Adequate Behavior: Less defensive, intermittently dysregulated Speech: Normal rate and volume Affect: Constricted, anxious Thought process: Rigid, perseverative Thought content: Preoccupied with discharge Psychomotor activity: Mildly restless DC Discharge remains delayed due to ongoing behavioral dysregulation and need to establish adequate post?discharge supports. Assessment Clinical Impression Autism spectrum disorder with developmental delay, chronic psychotic disorder, and borderline personality traits, currently partially calming but still acutely behaviorally dysregulated, with poor insight and high dependence on external containment. Strengths and Weaknesses Strengths include family involvement, engagement with treatment team, and partial response to clonidine. Barriers include poor insight, anxiety?driven rumination, frequent restraint/seclusion requests, and limited adaptive coping skills. Risk Level Ongoing moderate to high risk due to impulsivity, behavioral escalation, and grave disability. No expressed intent to harm others; however, frequent dysregulation and reliance on restraints indicate continued safety concerns within a less structured setting. Plan MEDICATIONS Continue aripiprazole ER (Nereida Maintena) Continue clonidine 0.1 mg TID One?time clonazepam [address]?related anxiety Consider antidepressant for rumination and anxiety if symptoms persist THERAPEUTIC INTERVENTIONS Continue consistent limit?setting and behavioral coaching Reinforce alternative coping strategies to replace restraint/seclusion reliance Ongoing treatment team and family collaboration SAFETY Maintain close behavioral monitoring Use restraints/seclusion only when clinically indicated for safety LEGAL STATUS Unchanged; court hearing held today DISPOSITION Continue inpatient care; discharge contingent on improved behavioral regulation and confirmed community supports Current Medications Medications (Trade) Dose Ordered Sig/Janel Route PRN Reason Start Time Stop Time Status Last Admin Dose Admin Diphenhydramine HCl (Benadryl capsule) 50 mg ONCE ONCE PO 01/24/25 21:00 01/24/25 21:01 DC 01/24/25 21:11 50 MG Lorazepam (Ativan tablet) 2 mg ONCE STAT PO 01/25/25 14:01 01/25/25 14:03 DC 01/25/25 14:09 2 MG Olanzapine (Zyprexa tablet) 10 mg ONCE STAT PO 01/25/25 14:06 01/25/25 14:07 DC 01/25/25 14:09 10 MG Acetaminophen (Tylenol tablet) 650 mg Q4H PRN PO pain 01/25/25 16:55 01/31/25 00:50 650 MG Magnesium Hydroxide (milk of magnesia oral suspension) 30 ml Q12H PRN PO constipation 01/25/25 16:55 01/28/25 12:04 30 ML Chlorpromazine HCl (Thorazine tablet) 50 mg Q6H PRN PO agitation 01/25/25 16:55 01/27/25 15:40 DC 01/27/25 08:00 50 MG Trazodone HCl (Desyrel tablet) 50 mg HS PRN PO Insomnia 01/25/25 16:55 01/28/25 17:37 DC 01/26/25 19:49 50 MG Hydroxyzine HCl (Atarax tablet) 50 mg Q6H PRN PO anxiety 01/25/25 16:55 01/30/25 20:16 50 MG Haloperidol Lactate (Haldol) 10 mg STK-MED ONCE .ROUTE 01/26/25 17:58 01/26/25 17:58 DC 01/26/25 18:21 10 MG Lorazepam (Ativan inj) 2 mg STK-MED ONCE .ROUTE 01/26/25 17:59 01/26/25 17:59 DC 01/26/25 18:21 2 MG Diphenhydramine HCl (Benadryl inj.) 50 mg STK-MED ONCE .ROUTE 01/26/25 18:00 01/26/25 18:00 DC 01/26/25 18:20 50 MG Lorazepam (Ativan tablet) 1 mg ONCE ONCE PO 01/26/25 19:30 01/26/25 19:34 DC 01/26/25 19:38 1 MG Olanzapine (ZyPREXA zydis tablet) 10 mg DAILY PO 01/27/25 08:00 01/29/25 17:59 10 MG Divalproex Sodium (Depakote) 1,000 mg BID PO 01/26/25 20:45 01/27/25 11:46 DC 01/27/25 08:01 1,000 MG Lorazepam (Ativan tablet) 2 mg ONCE ONCE PO 01/27/25 08:00 01/27/25 08:02 DC 01/27/25 10:00 2 MG Haloperidol (Haldol tablet) 10 mg ONCE ONCE PO 01/27/25 08:00 01/27/25 08:02 DC 01/27/25 10:00 10 MG Haloperidol Lactate (Haldol) 5 mg ONCE ONCE IM 01/27/25 10:10 01/27/25 10:13 DC 01/27/25 10:21 5 MG Diphenhydramine HCl (Benadryl inj.) 50 mg ONCE ONCE IM 01/27/25 10:10 01/27/25 10:13 DC 01/27/25 10:19 50 MG Divalproex Sodium (Depakote) 1,500 mg BID PO 01/27/25 20:00 01/30/25 20:15 1,500 MG Clonidine (Catapres tablet) 0.1 mg HS PO 01/27/25 21:00 01/29/25 11:03 DC 01/28/25 19:31 0.1 MG Olanzapine (ZyPREXA tablet) 5 mg TID PRN PO for anxiety/agitation 01/27/25 15:10 01/29/25 21:07 DC 01/29/25 17:57 5 MG Diazepam (Valium tablet) 5 mg BID PRN PO for anxiety/agitation 01/27/25 15:10 01/30/25 14:08 5 MG Ziprasidone (Geodon IMIM ONLY) 20 mg ONCE STAT IM 01/28/25 09:03 01/28/25 09:10 DC 01/28/25 09:24 20 MG Diphenhydramine HCl (Benadryl inj.) 50 mg ONCE STAT IM 01/28/25 09:03 01/28/25 09:10 DC 01/28/25 09:23 50 MG Clonidine (Catapres tablet) 0.1 mg TID PO 01/29/25 13:00 01/30/25 20:16 0.1 MG Olanzapine (Zyprexa tablet) 10 mg ONCE ONCE PO 01/29/25 21:05 01/29/25 21:07 DC 01/29/25 21:14 10 MG Olanzapine (Zyprexa 5mg tablet) 5 mg TID PRN PO for anxiety/agitation 01/29/25 21:07 01/30/25 20:16 5 MG Clonazepam (klonoPIN 1mg tablet) 1 mg ONCE ONCE PO 01/30/25 13:10 01/30/25 13:17 DC 01/30/25 13:19 1 MG Hydroxyzine HCl (Atarax tablet) 50 mg ONCE ONCE PO 01/30/25 21:05 01/30/25 21:06 DC 01/31/25 00:49 50 MG Clonidine (Catapres tablet) 0.1 mg ONCE ONCE PO 01/30/25 21:05 01/30/25 21:06 DC 01/31/25 00:49 0.1 MG Antibiotic Ordered?: No Objective Vitals Vital Signs Date Time Temp Pulse Resp B/P (MAP) Pulse Ox O2 Delivery O2 Flow Rate FiO2 01/30/25 05:27 18 01/29/25 20:14 97.1 81 125/72 (89) 98 Room Air Lab Results: 01/29/25 1312 01/28/25 1526 Problem\Assessment\Plan Problems/Diagnosis: (1) Post traumatic stress disorder (PTSD) (2) Autism (3) Schizoaffective disorder, bipolar type (4) Borderline personality disorder Psychiatrist's Progress Note Date of Service: Jan 30, 2025 Time of Evaluation: 09:34 CODING VISIT-PSYCHIATRY Date of Service: Jan 30, 2025 Billing Provider: PATRICK MEDEL MSN Psych Common Visit Codes: [id number] INP/OBS CARE(High) PATRICK MEDEL MSN Jan 30, 2025 09:34
--- NOTE | 2025-01-30 18:36 | PROGRESS NOTE- Residence ---
Progress Note - Resident Providers to CC Resident Creating Document: JOCELYN COSTA RES ~ Antibiotic Timeout Antibiotic Ordered?: No Subjective Patient had received medication for agitation prior to evaluation ( code hurt was called) On assessment he was sleep and not arousable to verbal stimulation. Given medication effect, full evaluation was deferred and patient will be reassessed later. I talked to nurse ask about any symptoms or complaint, he reported no any medical complaint heard from patient Objective Vital Signs Date Time Temp Pulse Resp B/P (MAP) Pulse Ox O2 Delivery O2 Flow Rate FiO2 01/30/25 14:08 16 01/30/25 07:30 97.6 80 130/80 (97) 99 Room Air 0.0 Result Diagram: 01/29/25 1312 01/28/25 1526 Physical exam deferred due to patient's condition at the moment. Patient had received medication for agitation prior to evaluation ( code hurt was called) On assessment he was sleep and not arousable to verbal stimulation. Given medication effect, full evaluation was deferred and patient will be reassessed later. Assessment Assessment This is a 29-year-old male admitted into the mental health unit for the management of schizoaffective disorder, borderline personality disorder and PTSD. Plan Plan Suicidal ideation Homicidal ideation Schizoaffective disorder, bipolar type Borderline personality disorder PTSD Management as per Psychiatry. Patient had received medication for agitation prior to evaluation ( code hurt was called) On assessment he was sleep and not arousable to verbal stimulation. Given medication effect, full evaluation was deferred and patient will be reassessed later. I talked to nurse ask about any symptoms or complaint, he reported no any medical complaint heard from patient Labs reviewed. Unremarkable except for mildly elevated LDL which does not warrant pharmacotherapy. Patient does not have any medical conditions or complaints. Disposition: Hospitalist service we will continue monitoring the patient during the course of his hospital stay. Jocelyn Costa MD Internal Medicine Resident, PGY-3 Date of Service: Jan 30, 2025 Billing Provider: SALOMÓN TILLMAN MD, ELAHE, GEOVANI Jan 30, 2025 18:36
[2025-01-31 00:43] VITALS: RESP 20
[2025-01-31 07:30] VITALS: BP 126/75; PULSE 81; RESP 16; TEMP 98; O2SAT 97
--- NOTE | 2025-01-31 10:07 | ELECTROCARDIOGRAPH REPORT ---
[facility] Test Date: 2025-01-31 Test Time: 10:06:21 Pat Name: SALLY RIVERA Department: [facility]ULT Patient ID: [facility]-[id number] Room: 332 B Gender: M Record Tabulating Clerk: PARK : 1995 Requested By: PATRICK MEDEL Order Number: [id number] Reading MD: Dr. ADRIAN Mckinnon Measurements Intervals Laie Rate: 82 P: 60 MI: 150 QRS: 70 QRSD: 107 T: 30 QT: 335 QTc: 392 Interpretive Statements Sinus rhythm Inferior infarct, old Anterolateral Q wave, probably normal for age Borderline ST elevation, anterior leads Baseline wander in lead(s) V1,V2,V3 Electronically Signed On 01-31-2025 12:39:[address] ADRAIN Mckinnon Please click the below link to view image of tracing.
[2025-01-31 19:00] VITALS: RESP 20; O2SAT 97
--- NOTE | 2025-01-31 19:40 | PROGRESS NOTE ---
Progress Note Dictate Providers to CC ~ Progress Note: HPI / Interval History Since the last note, the patient had a significantly dysregulated day following loss of his court hearing, with marked emotional distress throughout the afternoon and evening. He made multiple requests for PRN medications as well as restraints and seclusion, which continued overnight. He endorsed feeling significantly triggered by another patient on the unit, which he identified as exacerbating his distress. Given his extensive trauma history, this appeared to contribute to emotional overwhelm and behavioral escalation. Insight and judgment during this period were poor, with impulsive behaviors including property?directed aggression as a means of exerting control. Today, he was observed sleeping for much of the day without disturbances. Upon waking in the afternoon, he was tearful, emotionally overwhelmed, and requesting additional medication. During provider interaction, he was able to engage in a calm, non?hostile, and productive therapeutic conversation. He expressed readiness for discharge and demonstrated improved cooperation and flexibility, acknowledging difficulty backing down once he adopts a rigid posture. He was able to verbalize stressors related to adult responsibilities, fear of failure, and uncertainty about the future, representing improved emotional expression compared to prior days. He responded positively to validation and encouragement. He agreed to request resources appropriately and to avoid requesting injections, restraints, or seclusion as coping strategies, acknowledging these are long?standing trauma?linked calming behaviors. He continues to accept scheduled medications and required multiple PRNs over the past 24 hours. Clonidine appears to be beginning to provide benefit, with reduced hostility and calmer engagement noted today. He requested medication for sleep tonight; temazepam 15 mg one?time dose was ordered. Discharge was discussed; the plan is to review readiness with the treatment team, with possible discharge tomorrow if behavioral stability continues. ROS: Constitutional, psychiatric, and neurologic systems reviewed and negative except as noted in HPI. Changes in Signs and Symptoms (since admission) Emotional regulation improving, though remains fragile Behavioral dysregulation persists, triggered by environmental stressors Insight slightly improved during therapeutic engagement Impulsivity persists Sleep variable, with daytime hypersomnolence today PTS STATUS AND PROGESS The patient demonstrates a fluctuating clinical course, with significant dysregulation following legal and environmental triggers, but meaningful improvement in engagement, emotional processing, and behavioral control today. While not fully stabilized, he showed the ability to tolerate discussion of stressors and collaborate around discharge expectations. Continued inpatient care remains necessary for short?term monitoring, consolidation of gains, and safe discharge planning. Observations / Objective (STAFF / MSE ONLY) Appearance: Age?appropriate Hygiene: Adequate Behavior: Calm during interview, no aggression observed Speech: Normal rate and volume Affect: Tearful, anxious, congruent Thought process: Rigid but more goal?directed Thought content: Focused on discharge and identified stressors Psychomotor activity: No agitation observed DC Discharge is being considered, contingent on sustained behavioral control and treatment team agreement. Assessment Clinical Impression Autism spectrum disorder with developmental delay, chronic psychotic disorder, and borderline personality traits, currently emotionally labile but demonstrating emerging insight and improved behavioral control, with recent exacerbation related to legal stress and trauma?related environmental triggers. Strengths and Weaknesses Strengths include family involvement, ability to engage therapeutically, increasing emotional insight, and partial response to clonidine. Barriers include trauma reactivity, impulsivity, poor frustration tolerance, and reliance on maladaptive coping strategies under stress. Risk Level Risk remains moderate, given recent impulsive behaviors, emotional volatility, trauma reactivity, and vulnerability to grave disability under stress. No current SI or HI expressed. Risk of behavioral escalation increases when triggered by environmental stimuli but decreases with calm engagement and support. Plan MEDICATIONS Continue aripiprazole ER (Abiely Maintena) Continue clonidine 0.1 mg TID Temazepam 15 mg PO x1 tonight for sleep THERAPEUTIC INTERVENTIONS Continue supportive, trauma?informed psychotherapy Reinforce appropriate help?seeking and verbal processing Identify and minimize exposure to triggering stimuli when feasible SAFETY Continue close behavioral monitoring Avoid restraints/seclusion unless imminent safety risk LEGAL STATUS Unchanged DISPOSITION Review for possible discharge tomorrow pending continued stability and team consensus Current Medications Medications (Trade) Dose Ordered Sig/Janel Route PRN Reason Start Time Stop Time Status Last Admin Dose Admin Diphenhydramine HCl (Benadryl capsule) 50 mg ONCE ONCE PO 01/24/25 21:00 01/24/25 21:01 DC 01/24/25 21:11 50 MG Lorazepam (Ativan tablet) 2 mg ONCE STAT PO 01/25/25 14:01 01/25/25 14:03 DC 01/25/25 14:09 2 MG Olanzapine (Zyprexa tablet) 10 mg ONCE STAT PO 01/25/25 14:06 01/25/25 14:07 DC 01/25/25 14:09 10 MG Acetaminophen (Tylenol tablet) 650 mg Q4H PRN PO pain 01/25/25 16:55 01/31/25 00:50 650 MG Magnesium Hydroxide (milk of magnesia oral suspension) 30 ml Q12H PRN PO constipation 01/25/25 16:55 01/28/25 12:04 30 ML Chlorpromazine HCl (Thorazine tablet) 50 mg Q6H PRN PO agitation 01/25/25 16:55 01/27/25 15:40 DC 01/27/25 08:00 50 MG Trazodone HCl (Desyrel tablet) 50 mg HS PRN PO Insomnia 01/25/25 16:55 01/28/25 17:37 DC 01/26/25 19:49 50 MG Hydroxyzine HCl (Atarax tablet) 50 mg Q6H PRN PO anxiety 01/25/25 16:55 01/31/25 18:02 50 MG Haloperidol Lactate (Haldol) 10 mg STK-MED ONCE .ROUTE 01/26/25 17:58 01/26/25 17:58 DC 01/26/25 18:21 10 MG Lorazepam (Ativan inj) 2 mg STK-MED ONCE .ROUTE 01/26/25 17:59 01/26/25 17:59 DC 01/26/25 18:21 2 MG Diphenhydramine HCl (Benadryl inj.) 50 mg STK-MED ONCE .ROUTE 01/26/25 18:00 01/26/25 18:00 DC 01/26/25 18:20 50 MG Lorazepam (Ativan tablet) 1 mg ONCE ONCE PO 01/26/25 19:30 01/26/25 19:34 DC 01/26/25 19:38 1 MG Olanzapine (ZyPREXA zydis tablet) 10 mg DAILY PO 01/27/25 08:00 01/31/25 09:16 10 MG Divalproex Sodium (Depakote) 1,000 mg BID PO 01/26/25 20:45 01/27/25 11:46 DC 01/27/25 08:01 1,000 MG Lorazepam (Ativan tablet) 2 mg ONCE ONCE PO 01/27/25 08:00 01/27/25 08:02 DC 01/27/25 10:00 2 MG Haloperidol (Haldol tablet) 10 mg ONCE ONCE PO 01/27/25 08:00 01/27/25 08:02 DC 01/27/25 10:00 10 MG Haloperidol Lactate (Haldol) 5 mg ONCE ONCE IM 01/27/25 10:10 01/27/25 10:13 DC 01/27/25 10:21 5 MG Diphenhydramine HCl (Benadryl inj.) 50 mg ONCE ONCE IM 01/27/25 10:10 01/27/25 10:13 DC 01/27/25 10:19 50 MG Divalproex Sodium (Depakote) 1,500 mg BID PO 01/27/25 20:00 01/31/25 09:15 1,500 MG Clonidine (Catapres tablet) 0.1 mg HS PO 01/27/25 21:00 01/29/25 11:03 DC 01/28/25 19:31 0.1 MG Olanzapine (ZyPREXA tablet) 5 mg TID PRN PO for anxiety/agitation 01/27/25 15:10 01/29/25 21:07 DC 01/29/25 17:57 5 MG Diazepam (Valium tablet) 5 mg BID PRN PO for anxiety/agitation 01/27/25 15:10 Hold 01/31/25 18:02 5 MG Ziprasidone (Geodon IMIM ONLY) 20 mg ONCE STAT IM 01/28/25 09:03 01/28/25 09:10 DC 01/28/25 09:24 20 MG Diphenhydramine HCl (Benadryl inj.) 50 mg ONCE STAT IM 01/28/25 09:03 01/28/25 09:10 DC 01/28/25 09:23 50 MG Clonidine (Catapres tablet) 0.1 mg TID PO 01/29/25 13:00 Hold 01/31/25 13:00 0.1 MG Olanzapine (Zyprexa tablet) 10 mg ONCE ONCE PO 01/29/25 21:05 01/29/25 21:07 DC 01/29/25 21:14 10 MG Olanzapine (Zyprexa 5mg tablet) 5 mg TID PRN PO for anxiety/agitation 01/29/25 21:07 01/31/25 18:01 5 MG Clonazepam (klonoPIN 1mg tablet) 1 mg ONCE ONCE PO 01/30/25 13:10 01/30/25 13:17 DC 01/30/25 13:19 1 MG Hydroxyzine HCl (Atarax tablet) 50 mg ONCE ONCE PO 01/30/25 21:05 01/30/25 21:06 DC 01/31/25 00:49 50 MG Clonidine (Catapres tablet) 0.1 mg ONCE ONCE PO 01/30/25 21:05 01/30/25 21:06 DC 01/31/25 00:49 0.1 MG Antibiotic Ordered?: No Objective Vitals Vital Signs Date Time Temp Pulse Resp B/P (MAP) Pulse Ox O2 Delivery O2 Flow Rate FiO2 01/31/25 18:02 18 01/31/25 07:30 98.0 81 126/75 (92) 97 Room Air 0.0 Lab Results: 01/29/25 1312 01/28/25 1526 Problem\Assessment\Plan Problems/Diagnosis: (1) Post traumatic stress disorder (PTSD) (2) Autism (3) Schizoaffective disorder, bipolar type (4) Borderline personality disorder Psychiatrist's Progress Note Date of Service: Jan 31, 2025 Time of Evaluation: 14:20 CODING VISIT-PSYCHIATRY Date of Service: Jan 31, 2025 Billing Provider: PATRICK MEDEL MSN Psych Common Visit Codes: [id number] INP/OBS CARE(Mod) PATRICK MEDEL MSN Jan 31, 2025 19:40
[2025-01-31 20:00] VITALS: BP 140/84; PULSE 88; RESP 20; TEMP 97.4; O2SAT 97
[2025-02-01 07:00] VITALS: RESP 16; O2SAT 96
[2025-02-01 08:00] VITALS: RESP 16
[2025-02-01] MEDS ORDERED: OLAN5TAB75 PO (08:54)
[2025-02-01] MEDS ORDERED: CLON0.1T2 PO (08:54)
[2025-02-01] MEDS ORDERED: HYDR-3686 PO (08:54)
[2025-02-01] MEDS ORDERED: DIVA125C10 PO (08:54)
--- NOTE | 2025-02-01 09:14 | DISCHARGE SUMMARY ---
Discharge Summary Providers to CC ~ Discharge Summary Admission Diagnosis: SI/HI Hospital Course DATE OF ADMISSION: DATE OF DISCHARGE: Discharge Diagnosis\Comment: Autism spectrum disorder with developmental delay, chronic psychotic disorder, and mood dysregulation with borderline personality traits, improved and psychiatrically stabilized at discharge. Operations\Procedures: NONE Consultants: [employer] Complications: NONE Condition on DC: Stable 2 or more antipsychotic used: Yes 2/more antipsychotic addressed: No Does Patient smoke: No Smoking education given.: Yes New Medications: Clonidine HCl (Clonidine HCl) 0.1 Mg Tablet 0.1 MG PO TID for 14 Days, TAB Divalproex Sodium (Divalproex Sodium) 125 Mg Cap.sprink 1500 MG PO BID for 14 Days, CAP Hydroxyzine Hcl* (Atarax*) 25 Mg Tablet 50 MG PO Q6H PRN for anxiety for 14 Days, TAB Olanzapine (Olanzapine) 5 Mg Tablet 5 MG PO TID PRN for for anxiety/agitation for 14 Days, TAB Continued Medications: Aripiprazole (Abilify Maintena) 400 Mg Suser.syr 400 MG IM Q28D, MG Discharge Summary: Patient had a stable night with no restraints or seclusion, slept well, and demonstrated calm, appropriate behavior with good insight and judgment. He denies SI/HI and is psychiatrically stable. Discharged home with parental support, who will assist with medication management. *Problems/Diagnosis: (1) Post traumatic stress disorder (PTSD) (2) Autism (3) Schizoaffective disorder, bipolar type (4) Borderline personality disorder Total Time Spent on D/C: Up to 30 Minutes Counseling Services Smoking & Tobacco Cessation: 3-10 Minutes CODING VISIT-PSYCHIATRY Date of Service: Feb 01, 2025 Billing Provider: MONTEZ WOLF MD Psych Common Visit Codes: [id number] DISCH DAY <30min PATRICK MEDEL MSN Feb 01, 2025 09:02
[2025-02-15] MEDS ORDERED: aripiprazole 400mg suspension ER syringe IM SCH (08:00)
== END 2025-02-01 11:55 | disposition home or self-care (01) | DRG 761 ==
LOC: ER 17:09 → UNDOADMIN 01-25 16:20 → ED HOLD 01-25 16:20 → ADULT MH 01-25 16:46
PROVIDERS: ADMIT Psychiatry & Neurology Psychiatry; ATTEND Psychiatry & Neurology Psychiatry
PROC: GZHZZZZ Group Psychotherapy (ICD-10-PCS; principal; 2025-01-26)
DX: F25.0 Schizoaffective disorder, bipolar type (principal); R45.851 Suicidal ideations; F43.10 Post-traumatic stress disorder, unspecified; F90.9 Attention-deficit hyperactivity disorder, unspecified type; Z20.822 Contact with and (suspected) exposure to COVID-19; F60.3 Borderline personality disorder; G47.10 Hypersomnia, unspecified; F84.0 Autistic disorder; F41.9 Anxiety disorder, unspecified; Z79.899 Other long term (current) drug therapy; Z88.8 Allergy status to other drugs, medicaments and biological substances; Z91.030 Bee allergy status
CPT/HCPCS: 36415; 80048; 80053; 80061; 80305; 80320; 81003; 83036; 84443; 85025; 87081; 87811; 93005; 99285; J1200; J1630; J2060; J3486; Q0161; Q0163; Q0177